=== PATIENT | female | born 1950 | race Caucasian/White ===

== ENCOUNTER 2016-11-07 10:55 | Inpatient (IN) | payer MEDICARE, MEDICAID ==
[~2016-11-07] VITALS: Ht 165.1 cm; Wt 76.2 kg
[2016-11-07] MEDS ORDERED: methylPREDNISolone INJ 125 MG/2 ML VIAL (J2930) As Ordered ONE (11:16)
[2016-11-07] MEDS ORDERED: FAMOTIDINE/NS 20 MG/50 ML BAG (S0028) As Ordered ONE (11:16)
[2016-11-07] MEDS ORDERED: diphenhydrAMINE INJ 50MG/ML VIAL (J1200) As Ordered ONE (11:16)
[2016-11-07 11:23] LABS: BASO % 0.5 % (0.0-1.0); EOS # 0.4 K/mm3 (0.0-0.50); EOS % 3.7 % (0.0-3.0); LARGE UNSTAINED CELL # 0.1 K/mm3 (0.0-0.4); LARGE UNSTAINED CELL % 1.2 % (0.0-4.0); LYMPH # 1.5 K/mm3 (1.5-4.5); LYMPH % 13.4 % (24.0-44.0); MEAN CORPUSCULAR HEMOGLOBIN 32.1 pg (27.0-33.0); MEAN CORPUSCULAR HGB CONC 33.7 g/dl (32.0-36.5); MEAN CORPUSCULAR VOLUME 95.2 fl (80.0-96.0); MONO # 0.4 K/mm3 (0.0-0.8); MONO % 3.5 % (0.0-5.0); NEUTROPHILS # 8.5 K/mm3 (1.8-7.7); NEUTROPHILS % 77.7 % (36.0-66.0); PLATELET COUNT, AUTOMATED 189 k/mm3 (150-450); RED CELL DISTRIBUTION WIDTH 11.9 % (11.5-14.5)
[2016-11-07 11:41] LABS: ANION GAP 10 MEQ/L (8-16); BLOOD UREA NITROGEN 12 MG/DL (7-18); CALCIUM LEVEL 9.5 MG/DL (8.8-10.2); CARBON DIOXIDE LEVEL 27 MEQ/L (21-32); CHLORIDE LEVEL 107 MEQ/L (98-107); CREATININE FOR GFR 0.77 MG/DL (0.55-1.02); GLOMERULAR FILTRATION RATE > 60.0 (>45); GLUCOSE, FASTING 119 MG/DL (80-110); POTASSIUM SERUM 3.8 MEQ/L (3.5-5.1); SODIUM LEVEL 144 MEQ/L (136-145)
[2016-11-07] MEDS ORDERED: LOSA50TA20 PO (13:26)
[2016-11-07] MEDS ORDERED: ZOCO80TA PO (13:26)
[2016-11-07] MEDS ORDERED: METF500T PO (13:26)
[2016-11-07] MEDS ORDERED: SYNT88TA2 PO (13:26)
[2016-11-07] MEDS ORDERED: ASPI1TAB PO (13:26)
[2016-11-07] MEDS ORDERED: PRED20TA PO (13:26)
[2016-11-07] MEDS ORDERED: HYDR25TAB PO (13:26)
[2016-11-07] MEDS ORDERED: raNITIdine SYRUP 150 MG/10 ML UDC PO SCH (13:30)
[2016-11-07] MEDS ORDERED: GLUCOSE 4 GM CHEW TABLET PO PRN (13:45)
[2016-11-07] MEDS ORDERED: DEXTROSE 50% 50 ML SYRINGE IV PRN (13:45)
[2016-11-07] MEDS ORDERED: ONDANSETRON 4MG/2ML VIAL (J2405) IV PRN (13:45)
[2016-11-07] MEDS ORDERED: GLUCAGON FOR INJ 1 MG VIAL (J1610) SC PRN (13:45)
[2016-11-07] MEDS ORDERED: HEPARIN SOD (PORCINE) 5000 UNITS/ML VIAL SC SCH (14:00)
[2016-11-07] MEDS ORDERED: NS 1,000 ML IV SCH (14:00)
[2016-11-07 14:03] LABS: INR 0.91
[2016-11-07] MEDS ORDERED: FAMO20TA PO (15:44)
[2016-11-07] MEDS ORDERED: DIPH50CA PO (15:44)
--- NOTE | 2016-11-07 16:03 | EDDOCDS ---
Nurse's Notes [facility] Name: Padmaja Conde Age: 66 yrs Sex: Female : 1950 Arrival Date: 11/07/2016 Time: 10:55 Bed 17 Private MD: Andre Mckoy Diagnosis: Anaphylactic reaction due to adverse effect of correct drug or medicament properly administered Presentation: 11/07 11:06 Presenting complaint: Patient states: sudden onset tongue swelling approx one hour ago. jjr Adult Sepsis Screening: The patient does not have new or worsening altered mentation. Patient's respiratory rate is less than 22. Systolic blood pressure is greater than 100. Patient has a qSOFA score of 0- Negative Sepsis Screen. Suicide/Homicide risk assessment- the patient denies having any suicidal and/or homicidal ideations and does not present with any other emotional, behavioral or mental health complaints. Status: Patient is not a early childhood services coordinator or dependent. Transition of care: patient was not received from another setting of care. 11:06 Acuity: KAREL Level 2 jjr 11:06 Method Of Arrival: Walkin/Carried/Asstd jjr Triage Assessment: 11:11 General: Appears in no apparent distress, Behavior is appropriate for age. EENT: tongue jjr swollen speech slightly slurred but managing secretions. Historical: - Allergies: "something in one of my blood pressure medications but the doctor fixed that"; - Home Meds: 1. metformin 500 mg Oral tab 1 tab 2 times per day (Last dose: 11/07/2016) 2. levothyroxine 88 mcg Oral tab 1 tab once daily (Last dose: 11/07/2016) 3. aspirin 81 mg Oral TbEC 1 tab once daily (Last dose: 11/07/2016) 4. hydrochlorothiazide 25 mg Oral tab 1 tab once daily (Last dose: 11/07/2016) 5. losartan 50 mg oral tab 1 tab once daily (Last dose: 11/07/2016) 6. simvastatin 80 mg Oral tab 80 mg nightly (Last dose: 11/06/2016) 7. prednisone 20 mg Oral tab once daily (Last dose: 11/07/2016) - PMHx: Diabetes - NIDDM: controlled; Hypercholesterolemia; Hypertension; Hypothyroidism; - PSHx: Tonsillectomy; - Social history: Smoking status: Patient uses tobacco products, current every day smoker. No barriers to communication noted, The patient speaks fluent Guinean. - : The pt / caregiver states he / she is not on anticoagulants. Home medication list is obtained from the patient, pill bottles. - Exposure Risk Screening:: None identified. Screenin:21 Screening information is obtained from the patient. Fall risk: No risks identified. hs1 Assistance ADL's: requires no assistance with activities of daily living. Abuse/DV Screen: The patient / caregiver reports he/she is: not in a situation that causes fear, pain or injury. Nutritional screening: No deficits noted. Advance Directives: Currently, there is no health care proxy. home support is adequate. Assessment: 11:55 General: Appears in no apparent distress, Behavior is cooperative. Pain: Denies pain. hs1 EENT: tongue swollen . EENT: Reports difficulty swallowing. Respiratory: Airway is patent Respiratory effort is even, unlabored, Respiratory pattern is regular, symmetrical. Derm: Skin is pink, warm & dry. normal. 12:46 General: Appears in no apparent distress, comfortable, Behavior is appropriate for age, hs1 cooperative. Pain: Denies pain. EENT: tongue swollen . Respiratory: Airway is patent Respiratory effort is even, unlabored, Respiratory pattern is regular, symmetrical. Derm: Skin is pink, warm & dry. normal. 13:16 Reassessment: Patient appears in no apparent distress at this time. patient aware of hs1 hospitalization at this time. MD Granados in to speak with patient and agrees with Nury OLIVERA and patient consents for FFP at this time. Patient continues to rest with friend present. Airway patent respirations even and unlabored. . 14:38 General: Appears in no apparent distress, comfortable, Behavior is appropriate for age, hs1 cooperative, tongue swelling decreased. Patient aware of admission asking to go have cigarette at this time and was told that she needed to sign out AMA if she wanted to do that. Patient aware and is choosing not to leave at this time.. Vital Signs: 11:00 BP 137 / 94; Pulse 121; Resp 20; Temp 98.4(O); Pulse Ox 95% on R/A; Weight 76.2 kg (M); elp Height 5 ft. 5 in. (165.10 cm) (M); 11:15 BP 128 / 81 (auto/); kc3 11:18 Pulse 92 MON; Pulse Ox 94% ; kc3 11:29 Pulse 86 MON; Pulse Ox 95% ; kc3 11:30 BP 143 / 81 (auto/); kc3 11:45 BP 131 / 74 (auto/); kc3 11:45 Pulse 84 MON; Pulse Ox 95% ; kc3 11:59 Pulse 82 MON; Pulse Ox 96% ; kc3 12:00 BP 129 / 72 (auto/); kc3 12:14 Pulse 86 MON; Pulse Ox 96% ; kc3 12:15 BP 119 / 65 (auto/); kc3 12:24 Pulse 86 MON; Pulse Ox 95% ; kc3 12:30 BP 132 / 76 (auto/); kc3 12:45 BP 124 / 69 (auto/); kc3 12:45 Pulse 86 MON; Pulse Ox 92% ; kc3 13:00 BP 134 / 74 (auto/); kc3 13:00 Pulse 86 MON; Pulse Ox 95% ; kc3 13:14 Pulse 90 MON; Pulse Ox 94% ; kc3 13:15 BP 121 / 56 (auto/); kc3 13:29 Pulse 86 MON; Pulse Ox 96% ; kc3 13:30 BP 124 / 65 (auto/); kc3 11:00 Body Mass Index 27.96 (76.20 kg, 165.10 cm) elp Vitals: 11:00 Log In Time: November 07, 2016 at 10:55. RN notified that patient meets Red Flag elp criteria. ED Course: 10:57 Patient visited by Antonette Prescott PCA. elp 10:57 Patient moved to Waiting elp 10:59 Andre Mckoy is Private Physician. elp 11:01 Patient visited by Antonette Prescott PCA. elp 11:03 Patient moved to 17 elp 11:07 Marti Arrington MD is Attending Physician. fg 11:07 Triage Initiated jjr 11:21 Inserted saline lock: 18 gauge in right antecubital area and blood collected. The hs1 patient tolerated the procedure well. 11:22 Patient visited by Vandana Walter RN. hs1 11:26 O2 via nasal cannula \\T\\ 2L/min. ead 11:54 Patient visited by Vandana Walter RN. hs1 11:57 The patient / caregiver is instructed regarding the plan of care and ED course. hs1 11:58 Patient visited by Marti Arrington MD. fg 12:35 Patient visited by Vandana Walter RN. hs1 12:42 Jaci Zavala is Hospitalizing Provider. fg 13:16 Vandana Walter, GUNNER is Primary Nurse. hs1 14:03 [facility] Payment Agreement was scanned into [employer] and attached to record. mm15 15:56 Discontinued IV lock intact, bleeding controlled, pressure dressing applied, No hs1 redness/swelling at site. No procedures done that require assistance. Administered Medications: 11:20 Drug: Solu-MEDROL 125 mg [Solu-Medrol 500 mg intravenous solution (125 mg)] Route: IVP; ead Site: right antecubital; 11:55 Follow up: Response: No significant change. hs1 11:22 Drug: diphenhydrAMINE 25 mg [diphenhydramine 50 mg/mL injection solution (0.5 mL)] ead Route: IVP; Site: right antecubital; 11:55 Follow up: Response: No significant change. hs1 11:25 Drug: Famotidine 20 mg [famotidine 10 mg/mL intravenous solution] Route: IVPB; Infused ead Over: 30 mins; Site: right antecubital; 11:54 Follow up: IV Status: Completed infusion; IV Intake: 50ml hs1 Intake: 11:54 IV: 50.00ml; Total: 50.00ml. hs1 Order Results: Lab Order: CBC with Diff; SPEC'M 11/07/16 11:16 Test: WHITE BLOOD COUNT; Value: 11.0; Range: 4.0-10.0; Abnormal: Above high normal; Units: K/mm3; Status: F Test: RED BLOOD COUNT; Value: 5.36; Range: 4.00-5.40; Units: M/mm3; Status: F Test: HEMOGLOBIN; Value: 17.2; Range: 12.0-16.0; Abnormal: Above high normal; Units: g/dl; Status: F Test: HEMATOCRIT; Value: 51.0; Range: 36.0-47.0; Abnormal: Above high normal; Units: %; Status: F Test: MEAN CORPUSCULAR VOLUME; Value: 95.2; Range: 80.0-96.0; Units: fl; Status: F Test: MEAN CORPUSCULAR HEMOGLOBIN; Value: 32.1; Range: 27.0-33.0; Units: pg; Status: F Test: MEAN CORPUSCULAR HGB CONC; Value: 33.7; Range: 32.0-36.5; Units: g/dl; Status: F Test: RED CELL DISTRIBUTION WIDTH; Value: 11.9; Range: 11.5-14.5; Units: %; Status: F Test: PLATELET COUNT, AUTOMATED; Value: 189; Range: 150-450; Units: k/mm3; Status: F Test: NEUTROPHILS %; Value: 77.7; Range: 36.0-66.0; Abnormal: Above high normal; Units: %; Status: F Test: LYMPH %; Value: 13.4; Range: 24.0-44.0; Abnormal: Below low normal; Units: %; Status: F Test: MONO %; Value: 3.5; Range: 0.0-5.0; Units: %; Status: F Test: EOS %; Value: 3.7; Range: 0.0-3.0; Abnormal: Above high normal; Units: %; Status: F Test: BASO %; Value: 0.5; Range: 0.0-1.0; Units: %; Status: F Test: LARGE UNSTAINED CELL %; Value: 1.2; Range: 0.0-4.0; Units: %; Status: F Test: NEUTROPHILS #; Value: 8.5; Range: 1.8-7.7; Abnormal: Above high normal; Units: K/mm3; Status: F Test: LYMPH #; Value: 1.5; Range: 1.5-4.5; Units: K/mm3; Status: F Test: MONO #; Value: 0.4; Range: 0.0-0.8; Units: K/mm3; Status: F Test: EOS #; Value: 0.4; Range: 0.0-0.50; Units: K/mm3; Status: F Test: BASO #; Value: 0.0; Range: 0.0-0.2; Units: K/mm3; Status: F Test: LARGE UNSTAINED CELL #; Value: 0.1; Range: 0.0-0.4; Units: K/mm3; Status: F Lab Order: Basic Metabolic Profile; SPEC'M 11/07/16 11:16 Test: GLUCOSE, FASTING; Value: 119; Range: 80-110; Abnormal: Above high normal; Units: MG/DL; Status: F Test: BLOOD UREA NITROGEN; Value: 12; Range: 7-18; Units: MG/DL; Status: F Test: CREATININE FOR GFR; Value: 0.77; Range: 0.55-1.02; Units: MG/DL; Status: F Test: GLOMERULAR FILTRATION RATE; Value: > 60.0; Range: >45; Status: F Test: SODIUM LEVEL; Value: 144; Range: 136-145; Units: MEQ/L; Status: F Test: POTASSIUM SERUM; Value: 3.8; Range: 3.5-5.1; Units: MEQ/L; Status: F Test: CHLORIDE LEVEL; Value: 107; Range: 98-107; Units: MEQ/L; Status: F Test: CARBON DIOXIDE LEVEL; Value: 27; Range: 21-32; Units: MEQ/L; Status: F Test: ANION GAP; Value: 10; Range: 8-16; Units: MEQ/L; Status: F Test: CALCIUM LEVEL; Value: 9.5; Range: 8.8-10.2; Units: MG/DL; Status: F Test Note: ; Units are mL/min/1.73 m2 Chronic Kidney Disease Staging per NKF: Stage I & II GFR >=60 Normal to Mildly Decreased Stage III GFR 30-59 Moderately Decreased Stage IV GFR 15-29 Severely Decreased Stage V GFR <15 Very Little GFR Left ESRD GFR <15 on HEALTH INFORMATICS ADVISOR Lab Order: ABO/RH TYPE; SPEC'11/07/16 12:40 Test: BLOOD TYPE; Value: A POS; Status: F Lab Order: PROTHROMBIN TIME PROFILE\\E\\INR; SPEC'11/07/16 13:48 Test: PROTHROMBIN TIME; Value: 12.4; Range: 12.3-14.5; Units: SECONDS; Status: F Test: INR; Value: 0.91; Status: F Test Note: ; THERAPUTIC HUMAN INR VALUES INDICATIONS NORMAL RANGES PROPHYLAXIS/TREATMENT OF: VENOUS THROMBOSIS 2.0-3.0 PULMONARY EMBOLISM 2.0-3.0 PREVENTION OF SYSTEMIC EMBOLISM FROM: TISSUE HEART VALVES 2.0-3.0 ACUTE MYOCARDIAL INFARCTION 2.0-3.0 VALVULAR HEART DISEASE 2.0-3.0 ATRIAL FIBRILLATION 2.0-3.0 MECHANICAL VALVES(HIGH RISK) 2.5-3.5 RECURRENT MYOCARDIAL INFARCTION 2.5-3.5 Lab Order: ERYTHROCYTE SEDIMENTATION RATE; SPEC'M 11/07/16 13:48 Test: ERYTHROCYTE SEDIMENTATION RATE; Value: 16; Range: 0-30; Units: mm/hr; Status: F Lab Order: C REACTIVE PROTEIN QUANTITATIV; SPEC'M 11/07/16 13:48 Test: C REACTIVE PROTEIN QUANTITATIV; Value: 0.49; Range: 0.00-0.30; Abnormal: Above high normal; Units: MG/DL; Status: F Lab Order: THYROID STIMULATING HORMONE; SPEC'M 11/07/16 13:48 Test: THYROID STIMULATING HORMONE; Value: 0.190; Range: 0.358-3.740; Abnormal: Below low normal; Units: uIU/ML; Status: F Outcome: 12:43 Decision to Hospitalize by Provider. fg 15:02 Admission hand-off: Other: SBAR sent at this time . hs1 15:54 Discharge Assessment: Patient awake, alert and oriented x 3. No cognitive and/or hs1 functional deficits noted. Patient verbalized understanding of disposition instructions. patient administered narcotics - no. The following High Risk Discharge criteria are identified: Yes, ama FORM SIGNED. The patient is leaving AMA: AMA form signed, Notification of AMA status is made to the charge nurse, the social science analyst, Other Darwin OLIVERA ordered discharge AMA - instructions and prescriptions given to patient. Patient aware of risks and benefits of leaving. Condition: stable. Discharge instructions given to patient, Instructed on discharge instructions, follow up and referral plans. medication usage, Demonstrated understanding of instructions, medications, Pt was receptive of discharge instructions/ teaching. Prescriptions given X 2. No special radiology studies were completed. Property sent home with patient. 16:02 Patient left the ED. hs1 Signatures: Amada Sky RN RN jjr Sherrill, Hannah, RN RN hs1 Mak Hair mm15 Antonette Prescott, LEONARD PLASTIC BLOCK BOILER RELINER Fernanda Quinn RN RN ead Gill, Frances, MD MD fg Martinez,Bryanna,GUNNER RN kc3 RAOUL
--- NOTE | 2016-11-07 16:03 | EDDOCDS ---
Physician Documentation [facility] Name: Padmaja Conde Age: 66 yrs Sex: Female : 1950 Arrival Date: 11/07/2016 Time: 10:55 Bed 17 Private MD: Andre Mckoy Disposition: 11/07/16 12:43 Hospitalization ordered by Jaci Zavala for Inpatient Admission. Preliminary diagnosis is Anaphylactic reaction due to adverse effect of correct drug or medicament properly administered. - Bed requested for PCU. - Status is Inpatient Admission. hs1 - Condition is Stable. - Problem is new. - Symptoms are unchanged. Historical: - Allergies: "something in one of my blood pressure medications but the doctor fixed that"; - Home Meds: 1. metformin 500 mg Oral tab 1 tab 2 times per day (Last dose: 11/07/2016) 2. levothyroxine 88 mcg Oral tab 1 tab once daily (Last dose: 11/07/2016) 3. aspirin 81 mg Oral TbEC 1 tab once daily (Last dose: 11/07/2016) 4. hydrochlorothiazide 25 mg Oral tab 1 tab once daily (Last dose: 11/07/2016) 5. losartan 50 mg oral tab 1 tab once daily (Last dose: 11/07/2016) 6. simvastatin 80 mg Oral tab 80 mg nightly (Last dose: 11/06/2016) 7. prednisone 20 mg Oral tab once daily (Last dose: 11/07/2016) - PMHx: Diabetes - NIDDM: controlled; Hypercholesterolemia; Hypertension; Hypothyroidism; - PSHx: Tonsillectomy; - Social history: Smoking status: Patient uses tobacco products, current every day smoker. No barriers to communication noted, The patient speaks fluent German. - : The pt / caregiver states he / she is not on anticoagulants. Home medication list is obtained from the patient, pill bottles. - Exposure Risk Screening:: None identified. Vital Signs: 11/07 11:00 BP 137 / 94; Pulse 121; Resp 20; Temp 98.4(O); Pulse Ox 95% on R/A; Weight 76.2 kg / elp 167.99 lbs (M); Height 5 ft. 5 in. (165.10 cm) (M); 11:15 BP 128 / 81 (auto/); kc3 11:18 Pulse 92 MON; Pulse Ox 94% ; kc3 11:29 Pulse 86 MON; Pulse Ox 95% ; kc3 11:30 BP 143 / 81 (auto/); kc3 11:45 BP 131 / 74 (auto/); kc3 11:45 Pulse 84 MON; Pulse Ox 95% ; kc3 11:59 Pulse 82 MON; Pulse Ox 96% ; kc3 12:00 BP 129 / 72 (auto/); kc3 12:14 Pulse 86 MON; Pulse Ox 96% ; kc3 12:15 BP 119 / 65 (auto/); kc3 12:24 Pulse 86 MON; Pulse Ox 95% ; kc3 12:30 BP 132 / 76 (auto/); kc3 12:45 BP 124 / 69 (auto/); kc3 12:45 Pulse 86 MON; Pulse Ox 92% ; kc3 13:00 BP 134 / 74 (auto/); kc3 13:00 Pulse 86 MON; Pulse Ox 95% ; kc3 13:14 Pulse 90 MON; Pulse Ox 94% ; kc3 13:15 BP 121 / 56 (auto/); kc3 13:29 Pulse 86 MON; Pulse Ox 96% ; kc3 13:30 BP 124 / 65 (auto/); kc3 11:00 Body Mass Index 27.96 (76.20 kg, 165.10 cm) elp MDM: 11:08 IV Saline Lock ordered. fg 11:08 Solu-MEDROL 125 mg IVP once ordered. fg 11:08 Famotidine 20 mg IVPB once over 30 mins; dilute in 50mL of NS ordered. fg 11:08 diphenhydrAMINE 25 mg IVP once ordered. fg 11:09 CBC with Diff Ordered. EDMS 11:09 Basic Metabolic Profile Ordered. EDMS 12:41 BED REQUEST+ADM ordered. EDMS 13:19 ABO/RH TYPE Ordered. EDMS 13:32 PROTHROMBIN TIME PROFILE\\E\\INR Ordered. EDMS 13:32 ERYTHROCYTE SEDIMENTATION RATE Ordered. EDMS 13:32 C REACTIVE PROTEIN QUANTITATIV Ordered. EDMS 13:32 THYROID STIMULATING HORMONE Ordered. EDMS 13:33 Admission / Observation Status ordered. EDMS 13:33 NPO DIET ordered. EDMS 14:01 Financial registration complete. mm15 14:03 [facility] Payment Agreement was scanned into [employer]_ and attached to record. mm15 Administered Medications: 11:20 Drug: Solu-MEDROL 125 mg [Solu-Medrol 500 mg intravenous solution (125 mg)] Route: IVP; ead Site: right antecubital; 11:55 Follow up: Response: No significant change. hs1 11:22 Drug: diphenhydrAMINE 25 mg [diphenhydramine 50 mg/mL injection solution (0.5 mL)] ead Route: IVP; Site: right antecubital; 11:55 Follow up: Response: No significant change. hs1 11:25 Drug: Famotidine 20 mg [famotidine 10 mg/mL intravenous solution] Route: IVPB; Infused ead Over: 30 mins; Site: right antecubital; 11:54 Follow up: IV Status: Completed infusion; IV Intake: 50ml hs1 Signatures: Dispatcher [employer] EDAmada Jimenez RN RN jjr Sherrill, Hannah, RN RN hs1 Mak Hair mm15 Westley Clayton RN RN [facility] Marti Arrington MD MD Fernanda Hernandez RN ead The chart was reviewed and I authenticate all verbal orders and agree with the evaluation and treatment provided.Corrections: (The following items were deleted from the chart) 13:53 13:41 THYROID STIMULATING HORMONE ordered. EDMS EDMS 15:52 12:41 FROZEN PLASMA 24+BBK ordered. EDMS EDMS Attachments: 14:03 [facility] Payment Agreement mm15 MTDD
[2016-11-07] MEDS ORDERED: HumaLOG INSULIN (NovoLOG) PER UNIT SC SCH ×2 (17:30→21:00)
[2016-11-07] MEDS ORDERED: methylPREDNISolone INJ 125 MG/2 ML VIAL (J2930) IV SCH (20:00)
[2016-11-07] MEDS ORDERED: FAMOTIDINE 20 MG TAB PO SCH (21:00)
[2016-11-07] MEDS ORDERED: SIMVASTATIN 40 MG TAB PO SCH (21:00)
--- NOTE | 2016-11-07 21:40 | HPE ---
DATE OF ADMISSION: 11/07/2016 PRIMARY CARE PROVIDER: Dr. Andre Mckoy CHIEF COMPLAINT: Tongue and lip swelling. HISTORY OF PRESENT ILLNESS: The patient is a 66-year-old female who informs me that her upper lip began swelling on Tuesday. She was seen by a physician's trust manager assistant in her physician's clinic who had started her on prednisone. On further questioning and review of the chart, the patient was actually seen and evaluated in the emergency room in 2013 and at that she had edema and swelling to the same degree. She remembers the incident well. As per records, she was seen by Dr. Moore in the emergency room, who had stopped her Lisinopril. She was seen by Dr. Mckoy then as well and the patient declined admission. She did improve within several hours and was discharged. Following that, she was switched to irbesartan. She returned to the emergency room again in 2013 and was seen [address] Dr[address] Muller and was given Zantac, prednisone Dose Pack, and was discharged. She was once again seen and evaluated in the emergency room in March of last year with angioedema once again, these last two episodes being more mild and minor than today's or the 2013 visit. At that time, she was seen by Dr. Mcmahon. Her symptoms did improve with steroids and antihistamine, and she was discharged home. Today, the patient states that since Tuesday it has progressively worsened and significantly worsened more so this morning. Since 2013, the patient has been on losartan. She denies any change in her diet. No recent food or nut exposures. No other allergies that she is aware of. No family history of angioedema or facial swelling. She denies fevers, chills, chest pain, shortness of breath at the present time. She denies anxiety. PAST MEDICAL HISTORY: 1. Dbd-vbaexbt-xiurdjvpp diabetes. 2. Dyslipidemia. 3. Hypertension. 4. Hypothyroidism. 5. The patient reports a history of a stroke in the distant past. ALLERGIES: No known allergies. HOME MEDICATIONS: - losartan 50 mg daily - metformin 500 mg twice a day - prednisone 20 mg daily started on Tuesday - aspirin 81 mg daily - hydrochlorothiazide 25 mg daily - levothyroxine 88 mcg daily - simvastatin 80 mg at night PAST SURGICAL HISTORY: Tonsillectomy. SOCIAL HISTORY: The patient is a current smoker. Denies alcohol or illicit drug use. PHYSICAL EXAMINATION: VITAL SIGNS: Blood pressure 137/94, pulse 121, respiratory rate 20, temperature 98.4, oxygen saturation 95% on room air. GENERAL: She is a pleasant, elderly, female. She is accompanied by her cousin. The patient does not appear to be in any acute distress whatsoever. HEENT: She does have visible angioedema of the tongue, upper and lower lips. She is able to protrude her tongue. I am able to visualize her oral cavity posteriorly, including her uvula. She has mildly dry mucous membranes. No elevation in central venous pressure. CARDIOVASCULAR EXAMINATION: S1, S2. She is mildly tachycardic on my examination. RESPIRATORY EXAM: Clear. There is no stridor. ABDOMINAL EXAM: Benign. EXTREMITIES: No clubbing, cyanosis or edema. LABORATORY STUDIES: WBC 11.0, hemoglobin 17.2, hematocrit 51, platelet count 189. Chemistry panel: Sodium 144, potassium 3.8, chloride 107, bicarbonate 27, BUN 12, creatinine 0.7. No imaging. ASSESSMENT AND PLAN: This is a 66-year-old female with angioedema. 1. Angioedema. The patient had an episode in 2013 felt to be secondary to Lisinopril. She was switched to losartan and this is her third episode since that switch. At this time, my suspicion is that she is also having angioedema as an adverse reaction to losartan, although it is rare for patient's to have this adverse effect to both medications. This patient appears to be experiencing it. I will discontinue losartan and suggest that she does not take this medication in the future. I will document both Lisinopril and losartan as allergies in her medical record. Should she have any further episodes in the future, she may benefit from testing for C1 esterase deficiency. For the time being, the patient, in the emergency room, has received 2 units fresh frozen plasma, Benadryl, Solu-Medrol 125, and Pepcid 20 mg. I will admit her and provide her with ranitidine, Benadryl, and complete the fresh frozen plasma transfusion, which will likely benefit her. Solu- Medrol is usually not beneficial on ARB/WILLIAM inhibitor angioedema; however, given the possibility that this is C1 esterase deficiency or reaction to other medication, and she has improved on this in the past, I will continue her on Solu-Medrol. The patient is admitted to the progressive care unit (PCU) where she will be on continuous pulse oximetry monitoring. In the past, her episodes have resolved fairly quickly. This has been relative slow onset since Tuesday. 2. Diabetes. We will hold the patient's metformin and place her on sliding scale insulin with fingersticks. 3. History of a distant CVA. The patient is on an aspirin and a statin. 4. Hypothyroidism. The patient is on thyroid replacement therapy and we will check a TSH. 5. Tobacco use. The patient continues in the face of a distant CVA. She is at risk for further CVA while doing this. Cessation counseling is offered. 6. Hypertension. We are holding the patient's losartan. She will continue with hydrochlorothiazide with parameters. Could consider calcium channel delvin if she does need additional agent. 7. Deep vein thrombosis (DVT) prophylaxis. The patient will be on heparin. 8. Polycythemia. The patient's hemoglobin and hematocrit are mildly elevated. This may be related to tobacco use or she may be mildly dehydrated. I will provide her with some gentle IV fluids and recheck tomorrow. She may require further followup testing with her primary care provider upon discharge. DISPOSITION: The patient is admitted to the progressive care unit (PCU) for continued pulse oximetry and frequent vital signs and neuro checks to Dr. Smart' s service, who will continue following the patient tomorrow at 7:00 a.m. RAOUL
--- NOTE | 2016-11-07 21:43 | DS ---
DATE OF ADMISSION: 11/07/2016 DATE OF LEAVING AGAINST MEDICAL ADVICE: 11/07/2015 Please see history and physical dictated several hours earlier on 11/07/2016. The patient remained in the emergency room where she had improvement in her symptoms to the point that she felt that she was well enough to go home. It was explained to her that she would need to remain in the hospital for further observation and any relapsing of symptoms. Given that it is related to her airway compromise, it would lead to potential . We were providing her with intravenous medications. After the transfusion, she declined all interventions and chose to leave the hospital against medical advice. Greater than 20 minutes was spent at bedside speaking with the patient and her cousin, stressing the need for her to remain in the hospital; however, the patient declines this and is unreasonable to great efforts. I have advised her to stop taking losartan and continue taking prednisone, Pepcid and Benadryl. Prescriptions are sent to her pharmacy. I had a lengthy discussion with the patient and her cousin that if she should get worse, she should return to the hospital immediately. The patient would like to leave against medical advice. ADDENDUM: 11/07/2016, antony DISPOSITION: The patient is leaving the hospital against medical advice to the care of her cousin. She is leaving against medical advice. She has been advised to return to the emergency room if her symptoms worsen. She is to stop Losartan. She is to followup with her primary care provider as soon as possible. Her activity and diet are guarded given that there is potential for airway compromise and she has oral cavity swelling of her tongue, upper and lower lips. MEDICATIONS: At the time of discharge: - Benadryl 50 mg every 8 hours, quantity 6 sent to her pharmacy - Pepcid 20 mg twice a day, quantity 6 sent to her pharmacy - aspirin 81 mg - hydrochlorothiazide 25 mg daily - Synthroid 88 mcg daily - metformin 500 mg twice a day - prednisone 20 mg taper - simvastatin 80 mg at night She is to stop taking losartan. MTDD
[2016-11-07] MEDS ORDERED: diphenhydrAMINE 50 MG CAP PO SCH (22:00)
[2016-11-08] MEDS ORDERED: LEVOTHYROXINE 0.088 MG TAB (88 MCG) PO SCH (06:00)
[2016-11-08] MEDS ORDERED: ASPIRIN 81 MG ENTERIC TAB PO SCH (09:00)
[2016-11-08] MEDS ORDERED: hydroCHLOROthiazide 25 MG TAB PO SCH (09:00)
--- NOTE | 2016-11-09 17:04 | EDDOCDS ---
Physician Documentation [facility] Name: Padmaja Conde Age: 66 yrs Sex: Female : 1950 Arrival Date: 11/07/2016 Time: 10:55 Bed 17 Private MD: Andre Mckoy Disposition: 11/07/16 12:43 Hospitalization ordered by Jaci Zavala for Inpatient Admission. Preliminary diagnosis is Anaphylactic reaction due to adverse effect of correct drug or medicament properly administered. - Bed requested for PCU. - Status is Inpatient Admission. hs1 - Condition is Stable. - Problem is new. - Symptoms are unchanged. Historical: - Allergies: "something in one of my blood pressure medications but the doctor fixed that"; - Home Meds: 1. metformin 500 mg Oral tab 1 tab 2 times per day (Last dose: 11/07/2016) 2. levothyroxine 88 mcg Oral tab 1 tab once daily (Last dose: 11/07/2016) 3. aspirin 81 mg Oral TbEC 1 tab once daily (Last dose: 11/07/2016) 4. hydrochlorothiazide 25 mg Oral tab 1 tab once daily (Last dose: 11/07/2016) 5. losartan 50 mg oral tab 1 tab once daily (Last dose: 11/07/2016) 6. simvastatin 80 mg Oral tab 80 mg nightly (Last dose: 11/06/2016) 7. prednisone 20 mg Oral tab once daily (Last dose: 11/07/2016) - PMHx: Diabetes - NIDDM: controlled; Hypercholesterolemia; Hypertension; Hypothyroidism; - PSHx: Tonsillectomy; - Social history: Smoking status: Patient uses tobacco products, current every day smoker. No barriers to communication noted, The patient speaks fluent Armenian. - : The pt / caregiver states he / she is not on anticoagulants. Home medication list is obtained from the patient, pill bottles. - Exposure Risk Screening:: None identified. Vital Signs: 11/07 11:00 BP 137 / 94; Pulse 121; Resp 20; Temp 98.4(O); Pulse Ox 95% on R/A; Weight 76.2 kg / elp 167.99 lbs (M); Height 5 ft. 5 in. (165.10 cm) (M); 11:15 BP 128 / 81 (auto/); kc3 11:18 Pulse 92 MON; Pulse Ox 94% ; kc3 11:29 Pulse 86 MON; Pulse Ox 95% ; kc3 11:30 BP 143 / 81 (auto/); kc3 11:45 BP 131 / 74 (auto/); kc3 11:45 Pulse 84 MON; Pulse Ox 95% ; kc3 11:59 Pulse 82 MON; Pulse Ox 96% ; kc3 12:00 BP 129 / 72 (auto/); kc3 12:14 Pulse 86 MON; Pulse Ox 96% ; kc3 12:15 BP 119 / 65 (auto/); kc3 12:24 Pulse 86 MON; Pulse Ox 95% ; kc3 12:30 BP 132 / 76 (auto/); kc3 12:45 BP 124 / 69 (auto/); kc3 12:45 Pulse 86 MON; Pulse Ox 92% ; kc3 13:00 BP 134 / 74 (auto/); kc3 13:00 Pulse 86 MON; Pulse Ox 95% ; kc3 13:14 Pulse 90 MON; Pulse Ox 94% ; kc3 13:15 BP 121 / 56 (auto/); kc3 13:29 Pulse 86 MON; Pulse Ox 96% ; kc3 13:30 BP 124 / 65 (auto/); kc3 15:14 Pulse 112 MON; Pulse Ox 95% ; hs1 15:15 BP 140 / 87 (auto/); hs1 11:00 Body Mass Index 27.96 (76.20 kg, 165.10 cm) elp MDM: 11:08 IV Saline Lock ordered. fg 11:08 Solu-MEDROL 125 mg IVP once ordered. fg 11:08 Famotidine 20 mg IVPB once over 30 mins; dilute in 50mL of NS ordered. fg 11:08 diphenhydrAMINE 25 mg IVP once ordered. fg 11:09 CBC with Diff Ordered. EDMS 11:09 Basic Metabolic Profile Ordered. EDMS 12:41 BED REQUEST+ADM ordered. EDMS 13:19 ABO/RH TYPE Ordered. EDMS 13:32 PROTHROMBIN TIME PROFILE\\E\\INR Ordered. EDMS 13:32 ERYTHROCYTE SEDIMENTATION RATE Ordered. EDMS 13:32 C REACTIVE PROTEIN QUANTITATIV Ordered. EDMS 13:32 THYROID STIMULATING HORMONE Ordered. EDMS 13:33 Admission / Observation Status ordered. EDMS 13:33 NPO DIET ordered. EDMS 14:01 Financial registration complete. mm15 14:03 [facility] Payment Agreement was scanned into [employer] and attached to record. mm15 16:32 Refusal of Services was scanned into [employer] and attached to record. deg 19:31 BASIC METABOLIC PROFILE Ordered. EDMS 19:31 COMPLETE BLOOD COUNT Ordered. EDMS 21:57 T-Sheet-- Draft Copy was scanned into [employer] and attached to record. klr 11/08 12:24 Refusal of Services was scanned into [employer] and attached to record. gb 12:24 Consents was scanned into [employer] and attached to record. gb Administered Medications: 11/07 11:20 Drug: Solu-MEDROL 125 mg [Solu-Medrol 500 mg intravenous solution (125 mg)] Route: IVP; ead Site: right antecubital; 11:55 Follow up: Response: No significant change. hs1 11:22 Drug: diphenhydrAMINE 25 mg [diphenhydramine 50 mg/mL injection solution (0.5 mL)] ead Route: IVP; Site: right antecubital; 11:55 Follow up: Response: No significant change. hs1 11:25 Drug: Famotidine 20 mg [famotidine 10 mg/mL intravenous solution] Route: IVPB; Infused ead Over: 30 mins; Site: right antecubital; 11:54 Follow up: IV Status: Completed infusion; IV Intake: 50ml hs1 Signatures: Dispatcher [employer] EDSara Parmar, Adobe Developer Unit deg Samira Wong, Reg Reg gb Amada Sky RN RN jjr Sherrill, Hannah, RN RN hs1 Mak Hair mm15 Westley Clayton RN RN mts Gill, Frances, MD MD fg Redder, Kathie klr Dunaway, Emily RN ead The chart was reviewed and I authenticate all verbal orders and agree with the evaluation and treatment provided.Corrections: (The following items were deleted from the chart) 13:53 13:41 THYROID STIMULATING HORMONE ordered. EDMS EDMS 15:52 12:41 FROZEN PLASMA 24+BBK ordered. EDMS EDMS Attachments: 14:03 [facility] Payment Agreement mm15 21:57 T-Sheet-- Draft Copy klr Chart Complete MTDD
--- NOTE | 2016-11-09 17:04 | EDDOCDS ---
Nurse's Notes [facility] Name: Padmaja Conde Age: 66 yrs Sex: Female : 1950 Arrival Date: 11/07/2016 Time: 10:55 Bed 17 Private MD: Andre Mckoy Diagnosis: Anaphylactic reaction due to adverse effect of correct drug or medicament properly administered Presentation: 11/07 11:06 Presenting complaint: Patient states: sudden onset tongue swelling approx one hour ago. jjr Adult Sepsis Screening: The patient does not have new or worsening altered mentation. Patient's respiratory rate is less than 22. Systolic blood pressure is greater than 100. Patient has a qSOFA score of 0- Negative Sepsis Screen. Suicide/Homicide risk assessment- the patient denies having any suicidal and/or homicidal ideations and does not present with any other emotional, behavioral or mental health complaints. Status: Patient is not a volunteer services director or dependent. Transition of care: patient was not received from another setting of care. 11:06 Acuity: KAREL Level 2 jjr 11:06 Method Of Arrival: Walkin/Carried/Asstd jjr Triage Assessment: 11:11 General: Appears in no apparent distress, Behavior is appropriate for age. EENT: tongue jjr swollen speech slightly slurred but managing secretions. Historical: - Allergies: "something in one of my blood pressure medications but the doctor fixed that"; - Home Meds: 1. metformin 500 mg Oral tab 1 tab 2 times per day (Last dose: 11/07/2016) 2. levothyroxine 88 mcg Oral tab 1 tab once daily (Last dose: 11/07/2016) 3. aspirin 81 mg Oral TbEC 1 tab once daily (Last dose: 11/07/2016) 4. hydrochlorothiazide 25 mg Oral tab 1 tab once daily (Last dose: 11/07/2016) 5. losartan 50 mg oral tab 1 tab once daily (Last dose: 11/07/2016) 6. simvastatin 80 mg Oral tab 80 mg nightly (Last dose: 11/06/2016) 7. prednisone 20 mg Oral tab once daily (Last dose: 11/07/2016) - PMHx: Diabetes - NIDDM: controlled; Hypercholesterolemia; Hypertension; Hypothyroidism; - PSHx: Tonsillectomy; - Social history: Smoking status: Patient uses tobacco products, current every day smoker. No barriers to communication noted, The patient speaks fluent Norwegian. - : The pt / caregiver states he / she is not on anticoagulants. Home medication list is obtained from the patient, pill bottles. - Exposure Risk Screening:: None identified. Screenin:21 Screening information is obtained from the patient. Fall risk: No risks identified. hs1 Assistance ADL's: requires no assistance with activities of daily living. Abuse/DV Screen: The patient / caregiver reports he/she is: not in a situation that causes fear, pain or injury. Nutritional screening: No deficits noted. Advance Directives: Currently, there is no health care proxy. home support is adequate. Assessment: 11:55 General: Appears in no apparent distress, Behavior is cooperative. Pain: Denies pain. hs1 EENT: tongue swollen . EENT: Reports difficulty swallowing. Respiratory: Airway is patent Respiratory effort is even, unlabored, Respiratory pattern is regular, symmetrical. Derm: Skin is pink, warm & dry. normal. 12:46 General: Appears in no apparent distress, comfortable, Behavior is appropriate for age, hs1 cooperative. Pain: Denies pain. EENT: tongue swollen . Respiratory: Airway is patent Respiratory effort is even, unlabored, Respiratory pattern is regular, symmetrical. Derm: Skin is pink, warm & dry. normal. 13:16 Reassessment: Patient appears in no apparent distress at this time. patient aware of hs1 hospitalization at this time. MD Granados in to speak with patient and agrees with Nury OLIVERA and patient consents for FFP at this time. Patient continues to rest with friend present. Airway patent respirations even and unlabored. . 14:38 General: Appears in no apparent distress, comfortable, Behavior is appropriate for age, hs1 cooperative, tongue swelling decreased. Patient aware of admission asking to go have cigarette at this time and was told that she needed to sign out AMA if she wanted to do that. Patient aware and is choosing not to leave at this time.. Vital Signs: 11:00 BP 137 / 94; Pulse 121; Resp 20; Temp 98.4(O); Pulse Ox 95% on R/A; Weight 76.2 kg (M); elp Height 5 ft. 5 in. (165.10 cm) (M); 11:15 BP 128 / 81 (auto/); kc3 11:18 Pulse 92 MON; Pulse Ox 94% ; kc3 11:29 Pulse 86 MON; Pulse Ox 95% ; kc3 11:30 BP 143 / 81 (auto/); kc3 11:45 BP 131 / 74 (auto/); kc3 11:45 Pulse 84 MON; Pulse Ox 95% ; kc3 11:59 Pulse 82 MON; Pulse Ox 96% ; kc3 12:00 BP 129 / 72 (auto/); kc3 12:14 Pulse 86 MON; Pulse Ox 96% ; kc3 12:15 BP 119 / 65 (auto/); kc3 12:24 Pulse 86 MON; Pulse Ox 95% ; kc3 12:30 BP 132 / 76 (auto/); kc3 12:45 BP 124 / 69 (auto/); kc3 12:45 Pulse 86 MON; Pulse Ox 92% ; kc3 13:00 BP 134 / 74 (auto/); kc3 13:00 Pulse 86 MON; Pulse Ox 95% ; kc3 13:14 Pulse 90 MON; Pulse Ox 94% ; kc3 13:15 BP 121 / 56 (auto/); kc3 13:29 Pulse 86 MON; Pulse Ox 96% ; kc3 13:30 BP 124 / 65 (auto/); kc3 15:14 Pulse 112 MON; Pulse Ox 95% ; hs1 15:15 BP 140 / 87 (auto/); hs1 11:00 Body Mass Index 27.96 (76.20 kg, 165.10 cm) elp Vitals: 11:00 Log In Time: November 07, 2016 at 10:55. RN notified that patient meets Red Flag elp criteria. ED Course: 10:57 Patient visited by Antonette Prescott PCA. elp 10:57 Patient moved to Waiting elp 10:59 Andre Mckoy is Private Physician. elp 11:01 Patient visited by Antonette Prescott PCA. elp 11:03 Patient moved to 17 elp 11:07 Marti Arrington MD is Attending Physician. fg 11:07 Triage Initiated jjr 11:21 Inserted saline lock: 18 gauge in right antecubital area and blood collected. The hs1 patient tolerated the procedure well. 11:22 Patient visited by Vandana Walter RN. hs1 11:26 O2 via nasal cannula \\T\\ 2L/min. ead 11:54 Patient visited by Vandana Walter RN. hs1 11:57 The patient / caregiver is instructed regarding the plan of care and ED course. hs1 11:58 Patient visited by Marti Arrington MD. fg 12:35 Patient visited by Vandana Walter RN. hs1 12:42 Jaci Zavala is Hospitalizing Provider. fg 13:16 Vandana Walter RN is Primary Nurse. hs1 14:03 [facility] Payment Agreement was scanned into [employer] and attached to record. mm15 15:56 Discontinued IV lock intact, bleeding controlled, pressure dressing applied, No hs1 redness/swelling at site. No procedures done that require assistance. 16:32 Refusal of Services was scanned into [employer] and attached to record. deg 21:57 T-Sheet-- Draft Copy was scanned into [employer] and attached to record. klr 11/08 12:24 Refusal of Services was scanned into [employer] and attached to record. gb 12:24 Consents was scanned into [employer] and attached to record. gb Administered Medications: 11/07 11:20 Drug: Solu-MEDROL 125 mg [Solu-Medrol 500 mg intravenous solution (125 mg)] Route: IVP; ead Site: right antecubital; 11:55 Follow up: Response: No significant change. hs1 11:22 Drug: diphenhydrAMINE 25 mg [diphenhydramine 50 mg/mL injection solution (0.5 mL)] ead Route: IVP; Site: right antecubital; 11:55 Follow up: Response: No significant change. hs1 11:25 Drug: Famotidine 20 mg [famotidine 10 mg/mL intravenous solution] Route: IVPB; Infused ead Over: 30 mins; Site: right antecubital; 11:54 Follow up: IV Status: Completed infusion; IV Intake: 50ml hs1 Attachments: 16:32 Refusal of Services deg 11/08 12:24 Refusal of Services gb 12:24 Consents gb Intake: 11/07 11:54 IV: 50.00ml; Total: 50.00ml. hs1 Order Results: Lab Order: CBC with Diff; SPEC'M 11/07/16 11:16 Test: WHITE BLOOD COUNT; Value: 11.0; Range: 4.0-10.0; Abnormal: Above high normal; Units: K/mm3; Status: F Test: RED BLOOD COUNT; Value: 5.36; Range: 4.00-5.40; Units: M/mm3; Status: F Test: HEMOGLOBIN; Value: 17.2; Range: 12.0-16.0; Abnormal: Above high normal; Units: g/dl; Status: F Test: HEMATOCRIT; Value: 51.0; Range: 36.0-47.0; Abnormal: Above high normal; Units: %; Status: F Test: MEAN CORPUSCULAR VOLUME; Value: 95.2; Range: 80.0-96.0; Units: fl; Status: F Test: MEAN CORPUSCULAR HEMOGLOBIN; Value: 32.1; Range: 27.0-33.0; Units: pg; Status: F Test: MEAN CORPUSCULAR HGB CONC; Value: 33.7; Range: 32.0-36.5; Units: g/dl; Status: F Test: RED CELL DISTRIBUTION WIDTH; Value: 11.9; Range: 11.5-14.5; Units: %; Status: F Test: PLATELET COUNT, AUTOMATED; Value: 189; Range: 150-450; Units: k/mm3; Status: F Test: NEUTROPHILS %; Value: 77.7; Range: 36.0-66.0; Abnormal: Above high normal; Units: %; Status: F Test: LYMPH %; Value: 13.4; Range: 24.0-44.0; Abnormal: Below low normal; Units: %; Status: F Test: MONO %; Value: 3.5; Range: 0.0-5.0; Units: %; Status: F Test: EOS %; Value: 3.7; Range: 0.0-3.0; Abnormal: Above high normal; Units: %; Status: F Test: BASO %; Value: 0.5; Range: 0.0-1.0; Units: %; Status: F Test: LARGE UNSTAINED CELL %; Value: 1.2; Range: 0.0-4.0; Units: %; Status: F Test: NEUTROPHILS #; Value: 8.5; Range: 1.8-7.7; Abnormal: Above high normal; Units: K/mm3; Status: F Test: LYMPH #; Value: 1.5; Range: 1.5-4.5; Units: K/mm3; Status: F Test: MONO #; Value: 0.4; Range: 0.0-0.8; Units: K/mm3; Status: F Test: EOS #; Value: 0.4; Range: 0.0-0.50; Units: K/mm3; Status: F Test: BASO #; Value: 0.0; Range: 0.0-0.2; Units: K/mm3; Status: F Test: LARGE UNSTAINED CELL #; Value: 0.1; Range: 0.0-0.4; Units: K/mm3; Status: F Lab Order: Basic Metabolic Profile; [facility]' 11/07/16 11:16 Test: GLUCOSE, FASTING; Value: 119; Range: 80-110; Abnormal: Above high normal; Units: MG/DL; Status: F Test: BLOOD UREA NITROGEN; Value: 12; Range: 7-18; Units: MG/DL; Status: F Test: CREATININE FOR GFR; Value: 0.77; Range: 0.55-1.02; Units: MG/DL; Status: F Test: GLOMERULAR FILTRATION RATE; Value: > 60.0; Range: >45; Status: F Test: SODIUM LEVEL; Value: 144; Range: 136-145; Units: MEQ/L; Status: F Test: POTASSIUM SERUM; Value: 3.8; Range: 3.5-5.1; Units: MEQ/L; Status: F Test: CHLORIDE LEVEL; Value: 107; Range: 98-107; Units: MEQ/L; Status: F Test: CARBON DIOXIDE LEVEL; Value: 27; Range: 21-32; Units: MEQ/L; Status: F Test: ANION GAP; Value: 10; Range: 8-16; Units: MEQ/L; Status: F Test: CALCIUM LEVEL; Value: 9.5; Range: 8.8-10.2; Units: MG/DL; Status: F Test Note: ; Units are mL/min/1.73 m2 Chronic Kidney Disease Staging per NKF: Stage I & II GFR >=60 Normal to Mildly Decreased Stage III GFR 30-59 Moderately Decreased Stage IV GFR 15-29 Severely Decreased Stage V GFR <15 Very Little GFR Left ESRD GFR <15 on LUMBER STRAIGHTENER Lab Order: ABO/RH TYPE; [facility] 11/07/16 12:40 Test: BLOOD TYPE; Value: A POS; Status: F Lab Order: PROTHROMBIN TIME PROFILE\\E\\INR; [facility] 11/07/16 13:48 Test: PROTHROMBIN TIME; Value: 12.4; Range: 12.3-14.5; Units: SECONDS; Status: F Test: INR; Value: 0.91; Status: F Test Note: ; THERAPUTIC HUMAN INR VALUES INDICATIONS NORMAL RANGES PROPHYLAXIS/TREATMENT OF: VENOUS THROMBOSIS 2.0-3.0 PULMONARY EMBOLISM 2.0-3.0 PREVENTION OF SYSTEMIC EMBOLISM FROM: TISSUE HEART VALVES 2.0-3.0 ACUTE MYOCARDIAL INFARCTION 2.0-3.0 VALVULAR HEART DISEASE 2.0-3.0 ATRIAL FIBRILLATION 2.0-3.0 MECHANICAL VALVES(HIGH RISK) 2.5-3.5 RECURRENT MYOCARDIAL INFARCTION 2.5-3.5 Lab Order: ERYTHROCYTE SEDIMENTATION RATE; [facility] 11/07/16 13:48 Test: ERYTHROCYTE SEDIMENTATION RATE; Value: 16; Range: 0-30; Units: mm/hr; Status: F Lab Order: C REACTIVE PROTEIN QUANTITATIV; [facility] 11/07/16 13:48 Test: C REACTIVE PROTEIN QUANTITATIV; Value: 0.49; Range: 0.00-0.30; Abnormal: Above high normal; Units: MG/DL; Status: F Lab Order: THYROID STIMULATING HORMONE; [facility] 11/07/16 13:48 Test: THYROID STIMULATING HORMONE; Value: 0.190; Range: 0.358-3.740; Abnormal: Below low normal; Units: uIU/ML; Status: F Outcome: 12:43 Decision to Hospitalize by Provider. fg 15:02 Admission hand-off: Other: SBAR sent at this time . hs1 15:54 Discharge Assessment: Patient awake, alert and oriented x 3. No cognitive and/or hs1 functional deficits noted. Patient verbalized understanding of disposition instructions. patient administered narcotics - no. The following High Risk Discharge criteria are identified: Yes, ama FORM SIGNED. The patient is leaving AMA: AMA form signed, Notification of AMA status is made to the charge nurse, the social media marketing manager, Other Darwin OLIVERA ordered discharge AMA - instructions and prescriptions given to patient. Patient aware of risks and benefits of leaving. Condition: stable. Discharge instructions given to patient, Instructed on discharge instructions, follow up and referral plans. medication usage, Demonstrated understanding of instructions, medications, Pt was receptive of discharge instructions/ teaching. Prescriptions given X 2. No special radiology studies were completed. Property sent home with patient. 16:02 Patient left the ED. hs1 Signatures: Sara Hernández, Stick Welder Unit deg Samira Wong, Reg Reg gb Amada Sky, GUNNER RN Vandana Barker RN RN hs1 Mak Hair mm15 Antonette Prescott, AGRICULTURAL AGENT AGRICULTURAL AGENT Fernanda Quinn,RN RN Marti Monroe MD MD fg Crane, Kelsi, RN RN kc3 Maryann Granados Chart Complete RAOUL
== END 2016-11-07 16:02 | disposition left against medical advice (07) | DRG 916 ==
LOC: M ED 10:55 → M ED INP 13:31
PROVIDERS: ADMIT Internal Medicine; ATTEND Internal Medicine
PROC: 30233K1 Transfusion of Nonautologous Frozen Plasma into Peripheral Vein, Percutaneous Approach (ICD-10-PCS; principal; 2016-11-07)
DX: T78.3XXA Angioneurotic edema, initial encounter (principal); E11.9 Type 2 diabetes mellitus without complications; E78.5 Hyperlipidemia, unspecified; E03.9 Hypothyroidism, unspecified; I10 Essential (primary) hypertension; D75.1 Secondary polycythemia; Z86.73 Personal history of transient ischemic attack (TIA), and cerebral infarction without residual deficits; Z79.82 Long term (current) use of aspirin; Z79.84 Long term (current) use of oral hypoglycemic drugs; Z79.899 Other long term (current) drug therapy; F17.200 Nicotine dependence, unspecified, uncomplicated; T44.5X5A Adverse effect of predominantly beta-adrenoreceptor agonists, initial encounter

== ENCOUNTER 2016-11-29 20:42 | Emergency (ER) | payer MEDICARE, MEDICAID ==
[~2016-11-29 20:42] MED LIST: ASPI1TAB PO; DIPH50CA PO; FAMO20TA PO; HYDR25TAB PO; LOSA50TA20 PO; METF500T PO; PRED20TA PO; SYNT88TA2 PO; ZOCO80TA PO
[2016-11-29] MEDS ORDERED: diphenhydrAMINE INJ 50MG/ML VIAL (J1200) As Ordered ONE (21:52)
[2016-11-29] MEDS ORDERED: methylPREDNISolone INJ 125 MG/2 ML VIAL (J2930) As Ordered ONE (21:52)
[2016-11-29] MEDS ORDERED: FAMOTIDINE/NS 20 MG/50 ML BAG (S0028) As Ordered ONE (21:53)
--- NOTE | 2016-11-30 00:28 | EDDOCDS ---
Nurse's Notes [facility] Name: Padmaja Conde Age: 66 yrs Sex: Female : 1950 Arrival Date: 11/29/2016 Time: 20:42 Bed 14 Private MD: Andre Mckoy M.D. Diagnosis: Dysphagia-angioedema Presentation: 11/29 20:49 Presenting complaint: Patient states: difficulty swallowing since this evening. had rs3 supper without any problems. unable to swallow ice tea after supper. Onset: The symptoms/episode began/occurred just prior to arrival. The patient has a history of a previous allergic reaction. The previous reaction involved swelling. Anaphylaxis evaluation, the patient reports or I have noted the following symptoms which indicate a significant risk of anaphylaxis: angioedema. Adult Sepsis Screening: The patient does not have new or worsening altered mentation. Patient's respiratory rate is less than 22. Systolic blood pressure is greater than 100. Patient has a qSOFA score of 0- Negative Sepsis Screen. Suicide/Homicide risk assessment- the patient denies having any suicidal and/or homicidal ideations and does not present with any other emotional, behavioral or mental health complaints. Status: Patient is not a banking services advisor or dependent. Transition of care: patient was not received from another setting of care. 20:49 Acuity: KAREL Level 3 rs3 20:49 Method Of Arrival: Walkin/Carried/Asstd rs3 Triage Assessment: 20:55 General: Appears in no apparent distress. Pain: Denies pain. Respiratory: Reports no rs3 respiratory complaints. Historical: - Allergies: "something in one of my blood pressure medications but the doctor fixed that"; - Home Meds: 1. aspirin 81 mg Oral TbEC 1 tab once daily 2. hydrochlorothiazide 25 mg Oral tab 1 tab once daily 3. levothyroxine 88 mcg Oral tab 1 tab once daily 4. metformin 500 mg Oral tab 1 tab 2 times per day 5. simvastatin 80 mg Oral tab 80 mg nightly 6. prednisone 20 mg Oral tab once daily - PMHx: Diabetes - NIDDM: controlled; Hypercholesterolemia; Hypertension; Hypothyroidism; - PSHx: Tonsillectomy; - Social history: Smoking status: Patient uses tobacco products, light tobacco smoker. No barriers to communication noted, The patient speaks fluent Nigerian. - Family history: Not pertinent. - : The pt / caregiver states he / she is not on anticoagulants. Home medication list is obtained from the patient. - Exposure Risk Screening:: None identified. Screenin:15 Screening information is obtained from the patient. Fall risk: At risk due to age, The af2 following interventions are performed due to a positive Fall Risk Screen: Fall Risk is added to Special Handling on the patient Summary Screen. A Fall Risk Bracelet was applied to the patient. Side Rails are placed in the up position. A Call Dudley is given with instruction to call for help when getting out of bed. Assistance ADL's: requires no assistance with activities of daily living. Abuse/DV Screen: The patient / caregiver reports he/she is: not in a situation that causes fear, pain or injury. Nutritional screening: No deficits noted. Advance Directives: Currently, there is no health care proxy. home support is adequate. Assessment: 21:15 General: Appears in no apparent distress, comfortable, Behavior is appropriate for age, af2 cooperative, pleasant. Neurological: Level of Consciousness is awake, alert, obeys commands. Respiratory: Airway is patent Respiratory effort is even, unlabored, Breath sounds are coarse bilaterally. GI: Reports "feels like I have to swallow over something.". Derm: Skin is normal. 23:05 General: Appears in no apparent distress, Behavior is appropriate for age, cooperative. af2 Neurological: Level of Consciousness is awake, alert. Respiratory: Airway is patent Respiratory effort is even, unlabored. Derm: Skin is normal. 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 provider notified.. Vital Signs: 11/29 20:44 BP 142 / 82; Pulse 105; Resp 20; Temp 97.7(O); Pulse Ox 93% on R/A; Weight 75.57 kg kb5 (M); Height 5 ft. 3 in. (161 cm) (M); Pain 0/10; 22:42 BP 125 / 65 (auto/); af2 22:43 Pulse 84 MON; Resp 18 S; Pulse Ox 92% on R/A; af2 22:57 BP 125 / 66 (auto/); af2 22:58 Pulse 82 MON; Resp 18 S; Pulse Ox 91% on R/A; af2 23:12 BP 127 / 70 (auto/); af2 23:13 Pulse 84 MON; Resp 18 S; Pulse Ox 91% on R/A; af2 23:19 BP 152 / 83 (auto/); af2 23:21 Pulse 98 MON; Resp 18 S; Pulse Ox 94% on R/A; af2 11/30 00:25 BP 133 / 69; Pulse 90; Resp 18 S; Temp 97.4(O); Pulse Ox 96% on R/A; af2 11/29 20:44 Body Mass Index 29.15 (75.57 kg, 161 cm) kb5 Vitals: 11/29 20:44 Log In Time: November 29, 2016 at 20:15. kb5 ED Course: 20:44 Patient visited by Conor Martinez PCA. kb5 20:44 Andre Mckoy is Private Physician. kb5 20:44 Patient moved to Waiting kb5 20:54 Triage Initiated rs3 20:57 Patient moved to Pre RCE rs3 21:06 Vandana Walter RN is Primary Nurse. jmb 21:06 Lisbeth Lujan RN is Primary Nurse. jmb 21:06 Patient moved to 14 jmb 21:15 The patient / caregiver is instructed regarding the plan of care and ED course. Patient af2 has correct armband on for positive identification. classroom monitor on. Pulse ox on. NIBP on. 21:16 Patient visited by Lisbeth Lujan RN. af2 21:26 Chace Mcmahon DO is Attending Physician. mm11 21:26 Patient visited by Chace Mcmahon DO. mm11 21:38 Patient visited by Chace Mcmahon DO. mm11 22:47 Patient visited by Lisbeth Lujan RN. af2 23:06 Patient visited by Lisbeth Lujan RN. af2 23:06 Inserted saline lock: 20 gauge in right antecubital area and blood collected. The af2 patient tolerated the procedure well. 23:20 [facility] [place] was scanned into [employer] and attached to record. gjb 11/30 00:07 Patient visited by Lisbeth Lujan RN. af2 00:07 Andre Mckoy is Referral Physician. mm11 00:11 Patient visited by Lisbeth Lujan RN. af2 00:26 Discontinued IV lock intact, bleeding controlled, pressure dressing applied, No af2 redness/swelling at site. No procedures done that require assistance. Administered Medications: 11/29 22:07 Drug: Solu-MEDROL 125 mg [Solu-Medrol 500 mg intravenous solution (125 mg)] Route: IVP; af2 Site: right antecubital; 22:07 Drug: diphenhydrAMINE 25 mg [diphenhydramine 50 mg/mL injection solution (0.5 mL)] af2 Route: IVP; Site: right antecubital; 22:07 Drug: Famotidine 10 mg [famotidine 10 mg/mL intravenous solution] Route: IVPB; Infused af2 Over: 30 mins; Site: right antecubital; Order Results: There are currently no results for this order. Outcome: 11/30 00:08 Discharge ordered by Provider. mm11 00:26 Discharge Assessment: Patient awake, alert and oriented x 3. No cognitive and/or af2 functional deficits noted. Patient verbalized understanding of disposition instructions. patient administered narcotics - no. The following High Risk Discharge criteria are identified: None. Discharged to home ambulatory. Condition: stable. Discharge instructions given to patient, Instructed on discharge instructions, follow up and referral plans. medication usage, Demonstrated understanding of instructions, medications, Pt was receptive of discharge instructions/ teaching. No special radiology studies were completed. Property :Personal belongings accompany Pt. 00:27 Patient left the ED. af2 Signatures: Conor Martinez, LINING MECHANIC LINING MECHANIC kb5 Chace Mcmahon DO DO mm11 Ansley Kelsey RN RN rs3 Cullen Shoemaker RN RN jmb Fulton, Amber, RN RN af2 Jenny Santillan MTDD
--- NOTE | 2016-11-30 00:28 | EDDOCDS ---
Physician Documentation [facility] Name: Padmaja Conde Age: 66 yrs Sex: Female : 1950 Arrival Date: 11/29/2016 Time: 20:42 Bed 14 Private MD: Andre Mckoy M.D. Disposition: 11/30/16 00:08 Discharged to Home/Self Care. Impression: Dysphagia - angioedema. - Condition is Stable. - Discharge Instructions: Angioedema, Angioedema, [id number]. - Prescriptions for Prednisone 20 mg Oral Tablet - take 2 tablet by ORAL route once daily for 5 days; 10 tablet. - Medication Reconciliation, Local Pharmacy Hours form. - Follow up: Andre Mckoy; When: 2 - 3 days; Reason: Continuance of care. - Problem is an acute exacerbation. - Symptoms are resolved. Historical: - Allergies: "something in one of my blood pressure medications but the doctor fixed that"; - Home Meds: 1. aspirin 81 mg Oral TbEC 1 tab once daily 2. hydrochlorothiazide 25 mg Oral tab 1 tab once daily 3. levothyroxine 88 mcg Oral tab 1 tab once daily 4. metformin 500 mg Oral tab 1 tab 2 times per day 5. simvastatin 80 mg Oral tab 80 mg nightly 6. prednisone 20 mg Oral tab once daily - PMHx: Diabetes - NIDDM: controlled; Hypercholesterolemia; Hypertension; Hypothyroidism; - PSHx: Tonsillectomy; - Social history: Smoking status: Patient uses tobacco products, light tobacco smoker. No barriers to communication noted, The patient speaks fluent Arabic. - Family history: Not pertinent. - : The pt / caregiver states he / she is not on anticoagulants. Home medication list is obtained from the patient. - Exposure Risk Screening:: None identified. Vital Signs: 11/29 20:44 BP 142 / 82; Pulse 105; Resp 20; Temp 97.7(O); Pulse Ox 93% on R/A; Weight 75.57 kg / kb5 166.6 lbs (M); Height 5 ft. 3 in. (161 cm) (M); Pain 0/10; 22:42 BP 125 / 65 (auto/); af2 22:43 Pulse 84 MON; Resp 18 S; Pulse Ox 92% on R/A; af2 22:57 BP 125 / 66 (auto/); af2 22:58 Pulse 82 MON; Resp 18 S; Pulse Ox 91% on R/A; af2 23:12 BP 127 / 70 (auto/); af2 23:13 Pulse 84 MON; Resp 18 S; Pulse Ox 91% on R/A; af2 23:19 BP 152 / 83 (auto/); af2 23:21 Pulse 98 MON; Resp 18 S; Pulse Ox 94% on R/A; af2 11/30 00:25 BP 133 / 69; Pulse 90; Resp 18 S; Temp 97.4(O); Pulse Ox 96% on R/A; af2 11/29 20:44 Body Mass Index 29.15 (75.57 kg, 161 cm) kb5 MDM: 11/29 21:39 IV Saline Lock ordered. mm11 21:39 Solu-MEDROL 125 mg IVP once ordered. mm11 21:39 diphenhydrAMINE 25 mg IVP once ordered. mm11 21:39 Famotidine 10 mg IVPB once over 30 mins; dilute in 50mL of NS ordered. mm11 21:39 Air Defense Specialist/Pulse Ox/q 30 min VS ordered. mm11 22:27 Financial registration complete. rian 23:20 [facility] Payment Agreement was scanned into [employer] and attached to record. rian Administered Medications: 22:07 Drug: Solu-MEDROL 125 mg [Solu-Medrol 500 mg intravenous solution (125 mg)] Route: IVP; af2 Site: right antecubital; 22:07 Drug: diphenhydrAMINE 25 mg [diphenhydramine 50 mg/mL injection solution (0.5 mL)] af2 Route: IVP; Site: right antecubital; 22:07 Drug: Famotidine 10 mg [famotidine 10 mg/mL intravenous solution] Route: IVPB; Infused af2 Over: 30 mins; Site: right antecubital; Signatures: Chace Mcmahon DO DO mm11 Ansley Kelsey RN RN rs3 Lisbeth Lujan RN RN af2 Jenny Santillan The chart was reviewed and I authenticate all verbal orders and agree with the evaluation and treatment provided.Attachments: 23:20 [facility] Payment Agreement rian MTDD
--- NOTE | 2016-12-02 01:28 | EDDOCDS ---
Physician Documentation [facility] Name: Padmaja Conde Age: 66 yrs Sex: Female : 1950 Arrival Date: 11/29/2016 Time: 20:42 Bed 14 Private MD: Andre Mckoy M.D. Disposition: 11/30/16 00:08 Discharged to Home/Self Care. Impression: Dysphagia - angioedema. - Condition is Stable. - Discharge Instructions: Angioedema, Angioedema, [id number]. - Prescriptions for Prednisone 20 mg Oral Tablet - take 2 tablet by ORAL route once daily for 5 days; 10 tablet. - Medication Reconciliation, Local Pharmacy Hours form. - Follow up: Andre Mckoy; When: 2 - 3 days; Reason: Continuance of care. - Problem is an acute exacerbation. - Symptoms are resolved. Historical: - Allergies: "something in one of my blood pressure medications but the doctor fixed that"; - Home Meds: 1. aspirin 81 mg Oral TbEC 1 tab once daily 2. hydrochlorothiazide 25 mg Oral tab 1 tab once daily 3. levothyroxine 88 mcg Oral tab 1 tab once daily 4. metformin 500 mg Oral tab 1 tab 2 times per day 5. simvastatin 80 mg Oral tab 80 mg nightly 6. prednisone 20 mg Oral tab once daily - PMHx: Diabetes - NIDDM: controlled; Hypercholesterolemia; Hypertension; Hypothyroidism; - PSHx: Tonsillectomy; - Social history: Smoking status: Patient uses tobacco products, light tobacco smoker. No barriers to communication noted, The patient speaks fluent Occitan. - Family history: Not pertinent. - : The pt / caregiver states he / she is not on anticoagulants. Home medication list is obtained from the patient. - Exposure Risk Screening:: None identified. Vital Signs: 11/29 20:44 BP 142 / 82; Pulse 105; Resp 20; Temp 97.7(O); Pulse Ox 93% on R/A; Weight 75.57 kg / kb5 166.6 lbs (M); Height 5 ft. 3 in. (161 cm) (M); Pain 0/10; 22:42 BP 125 / 65 (auto/); af2 22:43 Pulse 84 MON; Resp 18 S; Pulse Ox 92% on R/A; af2 22:57 BP 125 / 66 (auto/); af2 22:58 Pulse 82 MON; Resp 18 S; Pulse Ox 91% on R/A; af2 23:12 BP 127 / 70 (auto/); af2 23:13 Pulse 84 MON; Resp 18 S; Pulse Ox 91% on R/A; af2 23:19 BP 152 / 83 (auto/); af2 23:21 Pulse 98 MON; Resp 18 S; Pulse Ox 94% on R/A; af2 11/30 00:25 BP 133 / 69; Pulse 90; Resp 18 S; Temp 97.4(O); Pulse Ox 96% on R/A; af2 11/29 20:44 Body Mass Index 29.15 (75.57 kg, 161 cm) kb5 MDM: 11/29 21:39 IV Saline Lock ordered. mm11 21:39 Solu-MEDROL 125 mg IVP once ordered. mm11 21:39 diphenhydrAMINE 25 mg IVP once ordered. mm11 21:39 Famotidine 10 mg IVPB once over 30 mins; dilute in 50mL of NS ordered. mm11 21:39 It Help Desk Associate/Pulse Ox/q 30 min VS ordered. mm11 22:27 Financial registration complete. [facility] 23:20 [facility] Payment Agreement was scanned into [email or web address] and attached to record. b 11/30 11:48 T-Sheet-- Draft Copy was scanned into [email or web address] and attached to record. gb Administered Medications: 11/29 22:07 Drug: Solu-MEDROL 125 mg [Solu-Medrol 500 mg intravenous solution (125 mg)] Route: IVP; af2 Site: right antecubital; 22:07 Drug: diphenhydrAMINE 25 mg [diphenhydramine 50 mg/mL injection solution (0.5 mL)] af2 Route: IVP; Site: right antecubital; 22:07 Drug: Famotidine 10 mg [famotidine 10 mg/mL intravenous solution] Route: IVPB; Infused af2 Over: 30 mins; Site: right antecubital; Signatures: Samira Wong, Reg Reg gb Chace Mcmahon, DO mm11 Ansley Kelsey RN RN rs3 Lisbeth Lujan RN RN af2 Jenny Santillan [facility] The chart was reviewed and I authenticate all verbal orders and agree with the evaluation and treatment provided.Attachments: 23:20 [facility] Payment Agreement gjb 11/30 11:48 T-Sheet-- Draft Copy gb Chart Complete MTDD
--- NOTE | 2016-12-02 01:28 | EDDOCDS ---
Nurse's Notes [facility] Name: Padmaja Conde Age: 66 yrs Sex: Female : 1950 Arrival Date: 11/29/2016 Time: 20:42 Bed 14 Private MD: Andre Mckoy M.D. Diagnosis: Dysphagia-angioedema Presentation: 11/29 20:49 Presenting complaint: Patient states: difficulty swallowing since this evening. had rs3 supper without any problems. unable to swallow ice tea after supper. Onset: The symptoms/episode began/occurred just prior to arrival. The patient has a history of a previous allergic reaction. The previous reaction involved swelling. Anaphylaxis evaluation, the patient reports or I have noted the following symptoms which indicate a significant risk of anaphylaxis: angioedema. Adult Sepsis Screening: The patient does not have new or worsening altered mentation. Patient's respiratory rate is less than 22. Systolic blood pressure is greater than 100. Patient has a qSOFA score of 0- Negative Sepsis Screen. Suicide/Homicide risk assessment- the patient denies having any suicidal and/or homicidal ideations and does not present with any other emotional, behavioral or mental health complaints. Status: Patient is not a customer servicer or dependent. Transition of care: patient was not received from another setting of care. 20:49 Acuity: KAREL Level 3 rs3 20:49 Method Of Arrival: Walkin/Carried/Asstd rs3 Triage Assessment: 20:55 General: Appears in no apparent distress. Pain: Denies pain. Respiratory: Reports no rs3 respiratory complaints. Historical: - Allergies: "something in one of my blood pressure medications but the doctor fixed that"; - Home Meds: 1. aspirin 81 mg Oral TbEC 1 tab once daily 2. hydrochlorothiazide 25 mg Oral tab 1 tab once daily 3. levothyroxine 88 mcg Oral tab 1 tab once daily 4. metformin 500 mg Oral tab 1 tab 2 times per day 5. simvastatin 80 mg Oral tab 80 mg nightly 6. prednisone 20 mg Oral tab once daily - PMHx: Diabetes - NIDDM: controlled; Hypercholesterolemia; Hypertension; Hypothyroidism; - PSHx: Tonsillectomy; - Social history: Smoking status: Patient uses tobacco products, light tobacco smoker. No barriers to communication noted, The patient speaks fluent Tajik. - Family history: Not pertinent. - : The pt / caregiver states he / she is not on anticoagulants. Home medication list is obtained from the patient. - Exposure Risk Screening:: None identified. Screenin:15 Screening information is obtained from the patient. Fall risk: At risk due to age, The af2 following interventions are performed due to a positive Fall Risk Screen: Fall Risk is added to Special Handling on the patient Summary Screen. A Fall Risk Bracelet was applied to the patient. Side Rails are placed in the up position. A Call Dudley is given with instruction to call for help when getting out of bed. Assistance ADL's: requires no assistance with activities of daily living. Abuse/DV Screen: The patient / caregiver reports he/she is: not in a situation that causes fear, pain or injury. Nutritional screening: No deficits noted. Advance Directives: Currently, there is no health care proxy. home support is adequate. Assessment: 21:15 General: Appears in no apparent distress, comfortable, Behavior is appropriate for age, af2 cooperative, pleasant. Neurological: Level of Consciousness is awake, alert, obeys commands. Respiratory: Airway is patent Respiratory effort is even, unlabored, Breath sounds are coarse bilaterally. GI: Reports "feels like I have to swallow over something.". Derm: Skin is normal. 23:05 General: Appears in no apparent distress, Behavior is appropriate for age, cooperative. af2 Neurological: Level of Consciousness is awake, alert. Respiratory: Airway is patent Respiratory effort is even, unlabored. Derm: Skin is normal. 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 provider notified.. Vital Signs: 11/29 20:44 BP 142 / 82; Pulse 105; Resp 20; Temp 97.7(O); Pulse Ox 93% on R/A; Weight 75.57 kg kb5 (M); Height 5 ft. 3 in. (161 cm) (M); Pain 0/10; 22:42 BP 125 / 65 (auto/); af2 22:43 Pulse 84 MON; Resp 18 S; Pulse Ox 92% on R/A; af2 22:57 BP 125 / 66 (auto/); af2 22:58 Pulse 82 MON; Resp 18 S; Pulse Ox 91% on R/A; af2 23:12 BP 127 / 70 (auto/); af2 23:13 Pulse 84 MON; Resp 18 S; Pulse Ox 91% on R/A; af2 23:19 BP 152 / 83 (auto/); af2 23:21 Pulse 98 MON; Resp 18 S; Pulse Ox 94% on R/A; af2 11/30 00:25 BP 133 / 69; Pulse 90; Resp 18 S; Temp 97.4(O); Pulse Ox 96% on R/A; af2 11/29 20:44 Body Mass Index 29.15 (75.57 kg, 161 cm) kb5 Vitals: 11/29 20:44 Log In Time: November 29, 2016 at 20:15. kb5 ED Course: 20:44 Patient visited by Conor Martinez PCA. kb5 20:44 Andre Mckoy is Private Physician. kb5 20:44 Patient moved to Waiting kb5 20:54 Triage Initiated rs3 20:57 Patient moved to Pre RCE rs3 21:06 Vandana Walter RN is Primary Nurse. jmb 21:06 Lisbeth Lujan RN is Primary Nurse. jmb 21:06 Patient moved to 14 jmb 21:15 The patient / caregiver is instructed regarding the plan of care and ED course. Patient af2 has correct armband on for positive identification. telemetry monitor on. Pulse ox on. NIBP on. 21:16 Patient visited by Lisbeth Lujan RN. af2 21:26 Chace Mcmahon DO is Attending Physician. mm11 21:26 Patient visited by Chace Mcmahon DO. mm11 21:38 Patient visited by Chace Mcmahon DO. mm11 22:47 Patient visited by Lisbeth Lujan RN. af2 23:06 Patient visited by Lisbeth Lujan RN. af2 23:06 Inserted saline lock: 20 gauge in right antecubital area and blood collected. The af2 patient tolerated the procedure well. 23:20 [facility] [place] was scanned into [employer] and attached to record. gjb 11/30 00:07 Patient visited by Lisbeth Lujan RN. af2 00:07 Andre Mckoy is Referral Physician. mm11 00:11 Patient visited by Lisbeth Lujan RN. af2 00:26 Discontinued IV lock intact, bleeding controlled, pressure dressing applied, No af2 redness/swelling at site. No procedures done that require assistance. 11:48 T-Sheet-- Draft Copy was scanned into i-drive and attached to record. gb Administered Medications: 11/29 22:07 Drug: Solu-MEDROL 125 mg [Solu-Medrol 500 mg intravenous solution (125 mg)] Route: IVP; af2 Site: right antecubital; 22:07 Drug: diphenhydrAMINE 25 mg [diphenhydramine 50 mg/mL injection solution (0.5 mL)] af2 Route: IVP; Site: right antecubital; 22:07 Drug: Famotidine 10 mg [famotidine 10 mg/mL intravenous solution] Route: IVPB; Infused af2 Over: 30 mins; Site: right antecubital; Order Results: There are currently no results for this order. Outcome: 11/30 00:08 Discharge ordered by Provider. mm11 00:26 Discharge Assessment: Patient awake, alert and oriented x 3. No cognitive and/or af2 functional deficits noted. Patient verbalized understanding of disposition instructions. patient administered narcotics - no. The following High Risk Discharge criteria are identified: None. Discharged to home ambulatory. Condition: stable. Discharge instructions given to patient, Instructed on discharge instructions, follow up and referral plans. medication usage, Demonstrated understanding of instructions, medications, Pt was receptive of discharge instructions/ teaching. No special radiology studies were completed. Property :Personal belongings accompany Pt. 00:27 Patient left the ED. af2 Signatures: Samira Wong, Reg Reg gb Conor Martinez, CAFE OPERATOR CAFE OPERATOR kb5 Chace Mcmahon, DO mm11 Ansley Kelsey RN RN rs3 Cullen Shoemaker RN RN Lisbeth Guerra RN RN af2 Jenny Santillan Chart Complete MTDD
--- NOTE | 2016-12-02 01:28 | EDDOCDS ---
Physician Documentation [facility] Name: Padmaja Conde Age: 66 yrs Sex: Female : 1950 Arrival Date: 11/29/2016 Time: 20:42 Bed 14 Private MD: Andre Mckoy M.D. Disposition: 11/30/16 00:08 Discharged to Home/Self Care. Impression: Dysphagia - angioedema. - Condition is Stable. - Discharge Instructions: Angioedema, Angioedema, [id number]. - Prescriptions for Prednisone 20 mg Oral Tablet - take 2 tablet by ORAL route once daily for 5 days; 10 tablet. - Medication Reconciliation, Local Pharmacy Hours form. - Follow up: Andre Mckoy; When: 2 - 3 days; Reason: Continuance of care. - Problem is an acute exacerbation. - Symptoms are resolved. Historical: - Allergies: "something in one of my blood pressure medications but the doctor fixed that"; - Home Meds: 1. aspirin 81 mg Oral TbEC 1 tab once daily 2. hydrochlorothiazide 25 mg Oral tab 1 tab once daily 3. levothyroxine 88 mcg Oral tab 1 tab once daily 4. metformin 500 mg Oral tab 1 tab 2 times per day 5. simvastatin 80 mg Oral tab 80 mg nightly 6. prednisone 20 mg Oral tab once daily - PMHx: Diabetes - NIDDM: controlled; Hypercholesterolemia; Hypertension; Hypothyroidism; - PSHx: Tonsillectomy; - Social history: Smoking status: Patient uses tobacco products, light tobacco smoker. No barriers to communication noted, The patient speaks fluent Setsw[place]. - Family history: Not pertinent. - : The pt / caregiver states he / she is not on anticoagulants. Home medication list is obtained from the patient. - Exposure Risk Screening:: None identified. Vital Signs: 11/29 20:44 BP 142 / 82; Pulse 105; Resp 20; Temp 97.7(O); Pulse Ox 93% on R/A; Weight 75.57 kg / kb5 166.6 lbs (M); Height 5 ft. 3 in. (161 cm) (M); Pain 0/10; 22:42 BP 125 / 65 (auto/); af2 22:43 Pulse 84 MON; Resp 18 S; Pulse Ox 92% on R/A; af2 22:57 BP 125 / 66 (auto/); af2 22:58 Pulse 82 MON; Resp 18 S; Pulse Ox 91% on R/A; af2 23:12 BP 127 / 70 (auto/); af2 23:13 Pulse 84 MON; Resp 18 S; Pulse Ox 91% on R/A; af2 23:19 BP 152 / 83 (auto/); af2 23:21 Pulse 98 MON; Resp 18 S; Pulse Ox 94% on R/A; af2 11/30 00:25 BP 133 / 69; Pulse 90; Resp 18 S; Temp 97.4(O); Pulse Ox 96% on R/A; af2 11/29 20:44 Body Mass Index 29.15 (75.57 kg, 161 cm) kb5 MDM: 11/29 21:39 IV Saline Lock ordered. mm11 21:39 Solu-MEDROL 125 mg IVP once ordered. mm11 21:39 diphenhydrAMINE 25 mg IVP once ordered. mm11 21:39 Famotidine 10 mg IVPB once over 30 mins; dilute in 50mL of NS ordered. mm11 21:39 Impregnating Tank Operator/Pulse Ox/q 30 min VS ordered. mm11 22:27 Financial registration complete. [facility] 23:20 [facility] Payment Agreement was scanned into [employer] and attached to record. b 11/30 11:48 T-Sheet-- Draft Copy was scanned into [employer] and attached to record. gb Administered Medications: 11/29 22:07 Drug: Solu-MEDROL 125 mg [Solu-Medrol 500 mg intravenous solution (125 mg)] Route: IVP; af2 Site: right antecubital; 22:07 Drug: diphenhydrAMINE 25 mg [diphenhydramine 50 mg/mL injection solution (0.5 mL)] af2 Route: IVP; Site: right antecubital; 22:07 Drug: Famotidine 10 mg [famotidine 10 mg/mL intravenous solution] Route: IVPB; Infused af2 Over: 30 mins; Site: right antecubital; Signatures: Samira Wong, Reg Reg gb Chace Mcmahon, DO mm11 Ansley Kelsey RN RN rs3 Lisbeth Lujan RN RN af2 Jenny Santillan [facility] The chart was reviewed and I authenticate all verbal orders and agree with the evaluation and treatment provided.Attachments: 23:20 [facility] [place] Agreement gjb 11/30 11:48 T-Sheet-- Draft Copy gb Chart Complete MTDD
== END 2016-11-30 00:27 | disposition home or self-care (01) ==
LOC: M ED 20:42
DX: T78.3XXA Angioneurotic edema, initial encounter (principal); R13.10 Dysphagia, unspecified; E11.9 Type 2 diabetes mellitus without complications; E78.00 Pure hypercholesterolemia, unspecified; I10 Essential (primary) hypertension; E03.9 Hypothyroidism, unspecified; Z72.0 Tobacco use; Z79.82 Long term (current) use of aspirin; Z79.899 Other long term (current) drug therapy
CPT/HCPCS: 36415; 93041; 96374; 96375; 99284; J1200; J2930

== ENCOUNTER 2016-12-11 11:18 | Emergency (ER) | payer MEDICARE, MEDICAID ==
[~2016-12-11] VITALS: Ht 162.6 cm; Wt 72.6 kg
[2016-12-11 11:26] VITALS: BP 145/88
[2016-12-11] MEDS ORDERED: CLEO300C2 PO (11:54)
== END 2016-12-11 12:17 | disposition home or self-care (01) ==
LOC: M ED 12:02
DX: K04.7 Periapical abscess without sinus (principal); Z79.84 Long term (current) use of oral hypoglycemic drugs; Z79.82 Long term (current) use of aspirin; Z79.899 Other long term (current) drug therapy; Z79.52 Long term (current) use of systemic steroids; F17.210 Nicotine dependence, cigarettes, uncomplicated; E78.00 Pure hypercholesterolemia, unspecified; I10 Essential (primary) hypertension; E11.9 Type 2 diabetes mellitus without complications; M54.9 Dorsalgia, unspecified

== ENCOUNTER → 2016-12-28 | Outpatient (CLI) | payer MEDICARE, MEDICAID ==
[~2016-12-28] MED LIST changes: +CLEO300C2 PO; +E-Z PAQUE 60% w/v SUSP 355ML BOTTLE As Ordered ONE; +E-Z-GAS II EFFERVESCENT PACKET (SODIUM BICARB./CITRIC ACID/SIMETHICONE) As Ordered ONE; +E-Z-HD 98% w/w 340GM SUSP BTL As Ordered ONE
--- NOTE | 2016-12-28 16:47 | REP ---
UPPER GI, AIR CONTRAST: The procedure was performed under the direct supervision of Dr. Sellers. The images were reviewed with Dr. Sellers. The tire room supervisor film shows no organomegaly or pathological masses. The intestinal gas pattern is nonspecific. There are left paravertebral vascular calcifications which may represent an abdominal aortic aneurysm. Recommend ultrasound for further evaluation. Liquid barium and gas-producing granules were given in the erect position as well as liquid barium in the prone oblique position in order to perform a double contrast upper GI examination. The oral and pharyngeal stages of deglutition are unremarkable. During esophageal transport, there are tertiary waves demonstrated. There is no esophagitis, stricture or mucosal ring. There is a sliding type hiatal hernia present. Gastroesophageal reflux is not demonstrated on this examination. The stomach munson are normally outlined. The rugal folds are smooth and regular. There is no gastritis, neoplasm or ulcer disease. The duodenal munson are normally outlined. The mucosal folds are smooth and regular. There is no duodenitis, pancreatitis, peptic ulcer disease or neoplasm. The visualized portion of the proximal small bowel appears normal in course and caliber. IMPRESSION: 1. On the tire room supervisor film there are left paravertebral vascular calcifications which may represent an abdominal aortic aneurysm. Recommend ultrasound for further evaluation. 2. Esophageal dysmotility. 3. There is a sliding type hiatal hernia present. 2 minutes and 31 seconds of fluoroscopy time was utilized for this procedure. Reviewed by JOSHUA Travis 12/29/2016 04:13 PEdited and Signed by Sher Sellers MD 12/30/2016 12:24 P
== END ==
LOC: M RAD 09:17
PROVIDERS: ATTEND Family Medicine
DX: R13.10 Dysphagia, unspecified (principal); K44.9 Diaphragmatic hernia without obstruction or gangrene

== ENCOUNTER 2017-01-22 10:24 | Emergency (ER) | payer MEDICARE, MEDICAID ==
[~2017-01-22] VITALS: Ht 160 cm; Wt 76.7 kg
[2017-01-22 10:24] VITALS: BP 146/81
[~2017-01-22 10:24] MED LIST changes: -E-Z PAQUE 60% w/v SUSP 355ML BOTTLE As Ordered ONE; -E-Z-GAS II EFFERVESCENT PACKET (SODIUM BICARB./CITRIC ACID/SIMETHICONE) As Ordered ONE; -E-Z-HD 98% w/w 340GM SUSP BTL As Ordered ONE
[2017-01-22] MEDS ORDERED: PRED20TA PO (11:20)
[2017-01-22] MEDS ORDERED: CLEO150C PO (11:20)
== END 2017-01-22 11:29 | disposition home or self-care (01) ==
LOC: M ED 11:26
DX: R60.9 Edema, unspecified (principal); E11.9 Type 2 diabetes mellitus without complications; I10 Essential (primary) hypertension; F17.200 Nicotine dependence, unspecified, uncomplicated; Z79.82 Long term (current) use of aspirin; Z79.84 Long term (current) use of oral hypoglycemic drugs; Z79.899 Other long term (current) drug therapy; Z88.8 Allergy status to other drugs, medicaments and biological substances

== ENCOUNTER 2017-03-12 13:19 | Emergency (ER) | payer MEDICARE, MEDICAID ==
[~2017-03-12] VITALS: Ht 162.6 cm; Wt 78.7 kg
[~2017-03-12 13:19] MED LIST changes: +CLEO150C PO
[2017-03-12] MEDS ORDERED: diphenhydrAMINE INJ 50MG/ML VIAL (J1200) IV STA (14:16)
[2017-03-12] MEDS ORDERED: EPINEPHrine INJ 1 MG/ML 1ML AMP SC STA (14:20)
[2017-03-12] MEDS ORDERED: methylPREDNISolone INJ 125 MG/2 ML VIAL (J2930) IV ONE (14:30)
[2017-03-12] MEDS ORDERED: FAMOTIDINE IV BAG 20 MG in APPROPRIATE DILUENT 1 EA IV ONE (14:30)
[2017-03-12 14:48] LABS: BASO # 0.1 K/mm3 (0.0-0.2); BASO % 0.7 % (0.0-1.0); EOS # 0.5 K/mm3 (0.0-0.50); EOS % 4.2 % (0.0-3.0); LARGE UNSTAINED CELL # 0.1 K/mm3 (0.0-0.4); LARGE UNSTAINED CELL % 1.2 % (0.0-4.0); LYMPH # 2.3 K/mm3 (1.5-4.5); LYMPH % 18.4 % (24.0-44.0); MEAN CORPUSCULAR HEMOGLOBIN 32.9 pg (27.0-33.0); MEAN CORPUSCULAR HGB CONC 34.7 g/dl (32.0-36.5); MEAN CORPUSCULAR VOLUME 94.8 fl (80.0-96.0); MONO # 0.6 K/mm3 (0.0-0.8); MONO % 5.2 % (0.0-5.0); NEUTROPHILS # 8.3 K/mm3 (1.8-7.7); NEUTROPHILS % 70.3 % (36.0-66.0); PLATELET COUNT, AUTOMATED 191 k/mm3 (150-450); RED CELL DISTRIBUTION WIDTH 12.6 % (11.5-14.5); WHITE BLOOD COUNT 11.8 K/mm3 (4.0-10.0)
[2017-03-12 15:16] LABS: ANION GAP 9 MEQ/L (8-16); BLOOD UREA NITROGEN 16 MG/DL (7-18); CALCIUM LEVEL 9.1 MG/DL (8.8-10.2); CARBON DIOXIDE LEVEL 26 MEQ/L (21-32); CHLORIDE LEVEL 105 MEQ/L (98-107); CREATININE FOR GFR 0.71 MG/DL (0.55-1.02); GLOMERULAR FILTRATION RATE > 60.0 (>45); GLUCOSE, FASTING 130 MG/DL (80-110); POTASSIUM SERUM 3.6 MEQ/L (3.5-5.1); SODIUM LEVEL 140 MEQ/L (136-145)
[2017-03-12 16:41] VITALS: BP 142/84
[2017-03-12] MEDS ORDERED: PRED20TA PO (17:11)
== END 2017-03-12 17:40 | disposition home or self-care (01) ==
LOC: M ED 15:00
DX: T78.40XA Allergy, unspecified, initial encounter (principal); T78.3XXA Angioneurotic edema, initial encounter; X58.XXXA Exposure to other specified factors, initial encounter; Y92.89 Other specified places as the place of occurrence of the external cause; Y93.89 Activity, other specified; Y99.9 Unspecified external cause status; I10 Essential (primary) hypertension; E78.00 Pure hypercholesterolemia, unspecified; E11.9 Type 2 diabetes mellitus without complications; F17.200 Nicotine dependence, unspecified, uncomplicated; Z79.82 Long term (current) use of aspirin; Z79.899 Other long term (current) drug therapy; Z88.8 Allergy status to other drugs, medicaments and biological substances
CPT/HCPCS: 80048; 85025; 86140; 93041; 96374; 96375; 99284; J1200; J2930

== ENCOUNTER 2017-05-04 09:08 | Emergency (ER) | payer MEDICARE, MEDICAID ==
[~2017-05-04 09:08] MED LIST changes: -METF500T PO; +METF500T13 PO
[2017-05-04] MEDS ORDERED: diphenhydrAMINE INJ 50MG/ML VIAL (J1200) IV STA (10:08)
[2017-05-04] MEDS ORDERED: methylPREDNISolone INJ 125 MG/2 ML VIAL (J2930) IV ONE (10:15)
[2017-05-04] MEDS ORDERED: FAMOTIDINE IV BAG 20 MG in APPROPRIATE DILUENT 1 EA IV ONE (10:15)
[2017-05-04 10:39] LABS: BASO # 0.1 K/mm3 (0.0-0.2); BASO % 0.5 % (0.0-1.0); EOS # 0.3 K/mm3 (0.0-0.50); EOS % 2.5 % (0.0-3.0); LARGE UNSTAINED CELL # 0.1 K/mm3 (0.0-0.4); LARGE UNSTAINED CELL % 0.5 % (0.0-4.0); LYMPH # 0.9 K/mm3 (1.5-4.5); LYMPH % 7.9 % (24.0-44.0); MEAN CORPUSCULAR HEMOGLOBIN 34.6 pg (27.0-33.0); MEAN CORPUSCULAR HGB CONC 36.3 g/dl (32.0-36.5); MEAN CORPUSCULAR VOLUME 95.3 fl (80.0-96.0); MONO # 0.2 K/mm3 (0.0-0.8); MONO % 2.1 % (0.0-5.0); NEUTROPHILS # 9.7 K/mm3 (1.8-7.7); NEUTROPHILS % 86.5 % (36.0-66.0); PLATELET COUNT, AUTOMATED 179 k/mm3 (150-450); WHITE BLOOD COUNT 11.2 K/mm3 (4.0-10.0)
[2017-05-04 11:03] LABS: ALBUMIN/GLOBULIN RATIO 1.08 (1.00-1.93); ALKALINE PHOSPHATASE 63 U/L (45-117); ALT/SGPT 20 U/L (12-78); ANION GAP 6 MEQ/L (8-16); AST/SGOT 9 U/L (15-37); BILIRUBIN,DIRECT 0.1 MG/DL (0.0-0.2); BILIRUBIN,TOTAL 0.5 MG/DL (0.2-1.0); BLOOD UREA NITROGEN 15 MG/DL (7-18); CALCIUM LEVEL 9.9 MG/DL (8.8-10.2); CARBON DIOXIDE LEVEL 28 MEQ/L (21-32); CHLORIDE LEVEL 102 MEQ/L (98-107); COMPLEMENT C4 28.5 MG/DL (10-40); CREATININE FOR GFR 0.69 MG/DL (0.55-1.02); GLOMERULAR FILTRATION RATE > 60.0 (>45); GLUCOSE, FASTING 123 MG/DL (80-110); POTASSIUM SERUM 3.5 MEQ/L (3.5-5.1); SODIUM LEVEL 136 MEQ/L (136-145); TOTAL PROTEIN 7.7 GM/DL (6.4-8.2)
[2017-05-04 11:09] LABS: ERYTHROCYTE SEDIMENTATION RATE 13 mm/hr (0-30)
[2017-05-04 12:21] VITALS: BP 135/70
== END 2017-05-04 12:25 | disposition home or self-care (01) ==
LOC: M ED 09:08
DX: T78.3XXA Angioneurotic edema, initial encounter (principal); X58.XXXA Exposure to other specified factors, initial encounter; Y92.9 Unspecified place or not applicable; Y93.9 Activity, unspecified; Y99.8 Other external cause status; E11.9 Type 2 diabetes mellitus without complications; I10 Essential (primary) hypertension; E03.9 Hypothyroidism, unspecified; F17.200 Nicotine dependence, unspecified, uncomplicated; Z79.82 Long term (current) use of aspirin; Z79.899 Other long term (current) drug therapy; Z88.8 Allergy status to other drugs, medicaments and biological substances; Z91.013 Allergy to seafood
CPT/HCPCS: 36415; 80048; 80076; 85025; 85652; 86140; 86160; 86161; 96365; 96375; 99284; J1200; J2930

== ENCOUNTER 2017-05-21 10:29 | Emergency (ER) | payer MEDICARE, MEDICAID ==
[~2017-05-21] VITALS: Ht 162.6 cm; Wt 79.4 kg
[2017-05-21 10:30] VITALS: BP 155/93
[2017-05-21] MEDS ORDERED: SIMV80TA PO (10:41)
[2017-05-21] MEDS ORDERED: AUGM875T28 PO (11:09)
== END 2017-05-21 11:21 | disposition home or self-care (01) ==
LOC: M ED 10:29
DX: K02.9 Dental caries, unspecified (principal); E78.00 Pure hypercholesterolemia, unspecified; I10 Essential (primary) hypertension; F17.200 Nicotine dependence, unspecified, uncomplicated; T78.3XXA Angioneurotic edema, initial encounter; Y92.9 Unspecified place or not applicable; Y93.9 Activity, unspecified; Z87.01 Personal history of pneumonia (recurrent); E11.9 Type 2 diabetes mellitus without complications; E03.9 Hypothyroidism, unspecified; M54.9 Dorsalgia, unspecified; Z79.82 Long term (current) use of aspirin; Z79.899 Other long term (current) drug therapy; Z79.84 Long term (current) use of oral hypoglycemic drugs; Z91.013 Allergy to seafood; Z88.8 Allergy status to other drugs, medicaments and biological substances

== ENCOUNTER → 2017-06-14 | Outpatient (CLI) | payer MEDICARE, MEDICAID ==
[~2017-06-14] MED LIST changes: +AUGM875T28 PO; +SIMV80TA PO
[2017-06-14 14:27] LABS: BASO # 0.1 K/mm3 (0.0-0.2); BASO % 0.6 % (0.0-1.0); EOS # 0.4 K/mm3 (0.0-0.50); EOS % 3.8 % (0.0-3.0); LYMPH # 2.3 K/mm3 (1.5-4.5); LYMPH % 21.2 % (24.0-44.0); MEAN CORPUSCULAR HEMOGLOBIN 33.8 pg (27.0-33.0); MEAN CORPUSCULAR HGB CONC 35.4 g/dl (32.0-36.5); MEAN CORPUSCULAR VOLUME 95.7 fl (80.0-96.0); MONO # 0.5 K/mm3 (0.0-0.8); MONO % 4.7 % (0.0-5.0); NEUTROPHILS # 7.2 K/mm3 (1.8-7.7); NEUTROPHILS % 67.6 % (36.0-66.0); RED CELL DISTRIBUTION WIDTH 12.6 % (11.5-14.5); WHITE BLOOD COUNT 10.6 K/mm3 (4.0-10.0)
[2017-06-14 14:46] LABS: ALBUMIN 4.2 GM/DL (3.2-5.2); ALBUMIN/GLOBULIN RATIO 1.27 (1.00-1.93); ALKALINE PHOSPHATASE 71 U/L (45-117); ALT/SGPT 23 U/L (12-78); ANION GAP 9 MEQ/L (8-16); AST/SGOT 5 U/L (15-37); BILIRUBIN,TOTAL 0.6 MG/DL (0.2-1.0); BLOOD UREA NITROGEN 12 MG/DL (7-18); CALCIUM LEVEL 9.6 MG/DL (8.8-10.2); CARBON DIOXIDE LEVEL 29 MEQ/L (21-32); CHLORIDE LEVEL 105 MEQ/L (98-107); CREATININE FOR GFR 0.66 MG/DL (0.55-1.02); GLOMERULAR FILTRATION RATE > 60.0 (>45); GLUCOSE, FASTING 95 MG/DL (80-110); POTASSIUM SERUM 3.7 MEQ/L (3.5-5.1); SODIUM LEVEL 143 MEQ/L (136-145); TOTAL PROTEIN 7.5 GM/DL (6.4-8.2)
[2017-06-14 14:59] LABS: COMPLEMENT C4 28.9 MG/DL (10-40)
[2017-06-22 00:07] LABS: C1 ESTER INHIB. NON FUNCTIONAL 33 mg/dL (21-39); IGE RECEPTOR ABY 1 6.7 (<10)
== END ==
LOC: M WUC 11:56
PROVIDERS: ATTEND Allergy & Immunology Allergy
DX: T78.3XXA Angioneurotic edema, initial encounter (principal); Y92.89 Other specified places as the place of occurrence of the external cause; Y93.89 Activity, other specified

== ENCOUNTER 2017-11-15 10:12 | Emergency (ER) | payer MEDICARE, MEDICAID ==
[2017-11-15] MEDS: diphenhydrAMINE INJ 50MG/ML VIAL (J1200) IV (11:02)
[2017-11-15] MEDS: methylPREDNISolone INJ 125 MG/2 ML VIAL (J2930) IV (11:02)
[2017-11-15] MEDS: FAMOTIDINE INJ 20MG/2ML VIAL (S0028) IVP (11:02)
== END 2017-11-15 12:22 | disposition home or self-care (01) ==
LOC: M ED 10:12
DX: T78.3XXA Angioneurotic edema, initial encounter (principal); Y92.9 Unspecified place or not applicable; Y93.9 Activity, unspecified; E11.9 Type 2 diabetes mellitus without complications; I10 Essential (primary) hypertension; Z86.73 Personal history of transient ischemic attack (TIA), and cerebral infarction without residual deficits; F17.200 Nicotine dependence, unspecified, uncomplicated; Z79.82 Long term (current) use of aspirin; Z79.84 Long term (current) use of oral hypoglycemic drugs; Z79.899 Other long term (current) drug therapy; Z88.8 Allergy status to other drugs, medicaments and biological substances; Z91.013 Allergy to seafood
CPT/HCPCS: J1200

== ENCOUNTER 2017-12-27 21:23 | Emergency (ER) | payer MEDICARE, MEDICAID ==
[2017-12-27] MEDS: NS 1,000 ML IV (21:45)
[2017-12-27] MEDS: methylPREDNISolone INJ 125 MG/2 ML VIAL (J2930) IV (21:45)
[2017-12-27] MEDS: diphenhydrAMINE INJ 50MG/ML VIAL (J1200) IV (21:45)
[2017-12-27] MEDS: FAMOTIDINE IV BAG 20 MG in APPROPRIATE DILUENT 1 EA IV (21:45)
== END 2017-12-28 03:52 | disposition left against medical advice (07) ==
LOC: M ED 12-28 03:52
DX: T78.3XXA Angioneurotic edema, initial encounter (principal); R22.1 Localized swelling, mass and lump, neck; X58.XXXA Exposure to other specified factors, initial encounter; Y92.89 Other specified places as the place of occurrence of the external cause; I10 Essential (primary) hypertension; E11.9 Type 2 diabetes mellitus without complications; E07.9 Disorder of thyroid, unspecified; F17.200 Nicotine dependence, unspecified, uncomplicated; Z91.013 Allergy to seafood; Z88.8 Allergy status to other drugs, medicaments and biological substances; Z79.899 Other long term (current) drug therapy; Z79.84 Long term (current) use of oral hypoglycemic drugs; Z79.82 Long term (current) use of aspirin
CPT/HCPCS: J1200

== ENCOUNTER 2018-03-11 15:13 | Emergency (ER) | payer MEDICARE, MEDICAID ==
[2018-03-11] MEDS: methylPREDNISolone INJ 125 MG/2 ML VIAL (J2930) IV (16:47)
[2018-03-11] MEDS: FAMOTIDINE IV BAG 20 MG in APPROPRIATE DILUENT 1 EA IV (16:49)
== END 2018-03-11 18:05 | disposition home or self-care (01) ==
LOC: M ED 15:13
DX: T78.3XXA Angioneurotic edema, initial encounter (principal); E11.9 Type 2 diabetes mellitus without complications; I10 Essential (primary) hypertension; F17.200 Nicotine dependence, unspecified, uncomplicated; E07.9 Disorder of thyroid, unspecified; Z91.013 Allergy to seafood; Z88.8 Allergy status to other drugs, medicaments and biological substances; Z79.84 Long term (current) use of oral hypoglycemic drugs; Z79.890 Hormone replacement therapy; Z79.82 Long term (current) use of aspirin; Z79.899 Other long term (current) drug therapy
CPT/HCPCS: J2930

== ENCOUNTER 2018-03-29 20:06 | Emergency (ER) | payer MEDICARE, MEDICAID ==
[2018-03-29] MEDS: diphenhydrAMINE INJ 50MG/ML VIAL (J1200) IV (21:11)
[2018-03-29] MEDS: methylPREDNISolone INJ 125 MG/2 ML VIAL (J2930) IV (21:11)
[2018-03-29] MEDS: FAMOTIDINE IV BAG 20 MG in APPROPRIATE DILUENT 1 EA IV (21:30)
== END 2018-03-29 22:18 | disposition home or self-care (01) ==
LOC: M ED 20:06
DX: T78.3XXA Angioneurotic edema, initial encounter (principal); R22.0 Localized swelling, mass and lump, head; X58.XXXA Exposure to other specified factors, initial encounter; Y92.89 Other specified places as the place of occurrence of the external cause; I10 Essential (primary) hypertension; E03.9 Hypothyroidism, unspecified; F17.200 Nicotine dependence, unspecified, uncomplicated; Z79.899 Other long term (current) drug therapy; Z79.84 Long term (current) use of oral hypoglycemic drugs; Z79.82 Long term (current) use of aspirin
CPT/HCPCS: J1200

== ENCOUNTER 2018-04-04 00:08 | Emergency (ER) | payer MEDICARE, MEDICAID ==
[2018-04-04] MEDS: dexameTHASONE 20 MG/5 ML VIAL (J1100) IM (01:33)
== END 2018-04-04 02:13 | disposition home or self-care (01) ==
LOC: M ED 00:08
DX: T78.3XXA Angioneurotic edema, initial encounter (principal); Y92.9 Unspecified place or not applicable; Y93.9 Activity, unspecified; Z79.899 Other long term (current) drug therapy; Z91.018 Allergy to other foods; Z88.8 Allergy status to other drugs, medicaments and biological substances
CPT/HCPCS: J1100

== ENCOUNTER 2018-04-11 02:48 | Emergency (ER) | payer MEDICARE, MEDICAID | END 2018-04-11 05:32 | disposition home or self-care (01) | LOC: M ED 02:48 | DX: R13.10 Dysphagia, unspecified (principal); E11.9 Type 2 diabetes mellitus without complications; I10 Essential (primary) hypertension; K21.9 Gastro-esophageal reflux disease without esophagitis; Z79.899 Other long term (current) drug therapy; Z79.890 Hormone replacement therapy; Z79.84 Long term (current) use of oral hypoglycemic drugs; Z88.8 Allergy status to other drugs, medicaments and biological substances; Z91.013 Allergy to seafood; F17.210 Nicotine dependence, cigarettes, uncomplicated | CPT/HCPCS: 70360 ==

== ENCOUNTER 2018-04-15 16:54 | Emergency (ER) | payer MEDICARE, MEDICAID ==
[2018-04-15] MEDS: methylPREDNISolone INJ 125 MG/2 ML VIAL (J2930) IV (17:21)
[2018-04-15] MEDS: FAMOTIDINE IV BAG 20 MG in APPROPRIATE DILUENT 1 EA IV (17:23)
[2018-04-15 17:24] LABS: BASO # 0.1 10^3/uL (0.0-0.2); BASO % 0.5 % (0.0-1.0); EOS # 0.3 10^3/uL (0.0-0.50); EOS % 2.5 % (0.0-3.0); HEMATOCRIT 43.8 % (36.0-47.0); HEMOGLOBIN 15.4 g/dl (12.0-15.5); IMMATURE GRANULOCYTE % 0.5 % (0-3.0); MEAN CORPUSCULAR HEMOGLOBIN 33.7 pg (27.0-33.0); MEAN CORPUSCULAR HGB CONC 35.2 g/dl (32.0-36.5); MEAN CORPUSCULAR VOLUME 95.8 fl (80.0-96.0); MONO # 1.1 10^3/uL (0.0-0.8); MONO % 9.1 % (0.0-5.0); NEUTROPHILS # 8.4 10^3/uL (1.8-7.7); NEUTROPHILS % 70.4 % (36.0-66.0); PLATELET COUNT, AUTOMATED 173 10^3/uL (150-450); RED BLOOD COUNT 4.57 10^6/uL (4.00-5.40); RED CELL DISTRIBUTION WIDTH 12.7 % (11.5-14.5); WHITE BLOOD COUNT 11.9 10^3/uL (4.0-10.0)
[2018-04-15 17:43] LABS: ALBUMIN 3.5 GM/DL (3.2-5.2); ALBUMIN/GLOBULIN RATIO 1.09 (1.00-1.93); ALKALINE PHOSPHATASE 60 U/L (45-117); ALT/SGPT 24 U/L (12-78); ANION GAP 9 MEQ/L (8-16); AST/SGOT 15 U/L (7-37); BILIRUBIN,DIRECT < 0.1 MG/DL (0.0-0.2); BILIRUBIN,TOTAL 0.4 MG/DL (0.2-1.0); BLOOD UREA NITROGEN 11 MG/DL (7-18); C REACTIVE PROTEIN QUANTITATIV 1.04 MG/DL (0.00-0.30); CALCIUM LEVEL 8.8 MG/DL (8.8-10.2); CARBON DIOXIDE LEVEL 28 MEQ/L (21-32); CHLORIDE LEVEL 104 MEQ/L (98-107); CREATININE FOR GFR 0.72 MG/DL (0.55-1.30); GLOMERULAR FILTRATION RATE > 60.0 (>45); GLUCOSE, FASTING 186 MG/DL (70-100); POTASSIUM SERUM 3.1 MEQ/L (3.5-5.1); SODIUM LEVEL 141 MEQ/L (136-145); TOTAL PROTEIN 6.7 GM/DL (6.4-8.2)
== END 2018-04-15 18:40 | disposition home or self-care (01) ==
LOC: M ED 16:54
DX: K14.9 Disease of tongue, unspecified (principal); E11.9 Type 2 diabetes mellitus without complications; I10 Essential (primary) hypertension; E03.9 Hypothyroidism, unspecified; Z86.73 Personal history of transient ischemic attack (TIA), and cerebral infarction without residual deficits; F17.200 Nicotine dependence, unspecified, uncomplicated; Z79.899 Other long term (current) drug therapy; Z79.84 Long term (current) use of oral hypoglycemic drugs; Z91.013 Allergy to seafood
CPT/HCPCS: J2930

== ENCOUNTER 2018-04-17 22:01 | Emergency (ER) | payer MEDICARE, MEDICAID ==
[2018-04-18] MEDS: methylPREDNISolone INJ 125 MG/2 ML VIAL (J2930) IM (00:45)
== END 2018-04-18 01:13 | disposition home or self-care (01) ==
LOC: M ED 22:01
DX: R13.10 Dysphagia, unspecified (principal); Z79.899 Other long term (current) drug therapy; Z88.8 Allergy status to other drugs, medicaments and biological substances; Z91.018 Allergy to other foods
CPT/HCPCS: J2930

== ENCOUNTER → 2018-05-25 | Outpatient (CLI) | payer MEDICARE, MEDICAID ==
[~2018-05-25] MED LIST changes: -ASPI1TAB PO; -AUGM875T28 PO; -CLEO150C PO; -CLEO300C2 PO; -DIPH50CA PO; +E-Z-GAS II EFFERVESCENT PACKET (SODIUM BICARB./CITRIC ACID/SIMETHICONE) As Ordered; +E-Z-HD 98% w/w 340GM SUSP BTL As Ordered; +E-Z-PAQUE 96% w/w SUSP 176GM BTL As Ordered; -FAMO20TA PO; -HYDR25TAB PO; -LOSA50TA20 PO; -METF500T13 PO; -PRED20TA PO; -SIMV80TA PO; -SYNT88TA2 PO; -ZOCO80TA PO
== END ==
LOC: M RAD 10:00
DX: R13.10 Dysphagia, unspecified (principal)
CPT/HCPCS: 74220

== ENCOUNTER 2021-10-12 09:35 | Emergency (ER) | payer MEDICARE, MEDICAID ==
[~2021-10-12] VITALS: Ht 165.1 cm; Wt 77.3 kg
[~2021-10-12 09:35] MED LIST changes: +ASPI81TA26 PO; +AUGM875T28 PO; +BENA25CA4 PO; +CETI10CH PO; +CLEO150C PO; +CLEO300C2 PO; +DIPH-319; +DIPH25CA32 PO; +DIPH50CA PO; -E-Z-GAS II EFFERVESCENT PACKET (SODIUM BICARB./CITRIC ACID/SIMETHICONE) As Ordered; -E-Z-HD 98% w/w 340GM SUSP BTL As Ordered; -E-Z-PAQUE 96% w/w SUSP 176GM BTL As Ordered; +FAMO20TA PO; +HYDR-3490 PO; +HYDR12.55 PO; +LOSA50TA88 PO; +METF500T13 PO; +PEPC1TAB5 PO; +PRED20TA PO; +SIMV80TA13 PO; +SYNT88TA2 PO; +ZOCO80TA PO
[2021-10-12] MEDS ORDERED: GABA-282 (09:47)
[2021-10-12] MEDS ORDERED: DULO1CAP4 (09:47)
[2021-10-12] MEDS ORDERED: ACETAMINOPHEN TAB 650MG DOSE (2X325MG) PO ONE (10:15)
--- NOTE | 2021-10-12 11:04 | REP ---
INDICATION: pain s/p fall/direct blow COMPARISON: None. TECHNIQUE: AP and lateral views of the sacrum and coccyx FINDINGS: Lateral view demonstrates contour abnormality at the level of the coccyx which may represent acute versus chronic injury. Remainder of the examination is grossly normal/age-appropriate. IMPRESSION: Acute versus chronic injury at the level of the coccyx. <Electronically signed by Pérez Lynn > 10/12/21 1108
[2021-10-12] MEDS ORDERED: IBUP-1022 PO (11:18)
[2021-10-12] MEDS ORDERED: ACET325C5 PO (11:18)
[2021-10-12] MEDS ORDERED: CANEMIS XX (11:35)
[2021-10-12 11:41] VITALS: BP 172/90
== END 2021-10-12 11:43 | disposition home or self-care (01) ==
LOC: M ED 09:35 → EDBD 09:35 → M ED 11:43
DX: S32.2XXA Fracture of coccyx, initial encounter for closed fracture (principal); W01.0XXA Fall on same level from slipping, tripping and stumbling without subsequent striking against object, initial encounter; Y92.009 Unspecified place in unspecified non-institutional (private) residence as the place of occurrence of the external cause; Y93.9 Activity, unspecified; Y99.9 Unspecified external cause status; E11.9 Type 2 diabetes mellitus without complications; I10 Essential (primary) hypertension; E03.9 Hypothyroidism, unspecified; F17.200 Nicotine dependence, unspecified, uncomplicated; Z88.8 Allergy status to other drugs, medicaments and biological substances; Z79.890 Hormone replacement therapy; Z79.899 Other long term (current) drug therapy

== ENCOUNTER 2022-01-28 09:35 | Inpatient (IN) | payer MEDICARE, MEDICAID ==
[~2022-01-28] VITALS: Ht 160 cm; Wt 89.1 kg
[~2022-01-28 09:35] MED LIST changes: +ACET325C5 PO; +CANEMIS XX; +DULO1CAP4 PO; +GABA-282 PO; +IBUP-1022 PO; +LOSA50TA28 PO; -LOSA50TA88 PO
[2022-01-28] MEDS ORDERED: ISOVUE-370 76% 100ML VIAL As Ordered ONE (10:06)
[2022-01-28 10:17] LABS: BASO # 0.1 10^3/uL (0.0-0.2); BASO % 0.5 % (0.0-1.0); EOS % 0.4 % (0.0-3.0); HEMATOCRIT 43.5 % (36.0-47.0); HEMOGLOBIN 14.9 g/dl (12.0-15.5); LYMPH # 0.5 10^3/uL (1.5-5.0); LYMPH % 4.2 % (24.0-44.0); MEAN CORPUSCULAR HEMOGLOBIN 33.3 pg (27.0-33.0); MEAN CORPUSCULAR HGB CONC 34.3 g/dl (32.0-36.5); MEAN CORPUSCULAR VOLUME 97.1 fl (80.0-96.0); MONO # 0.8 10^3/uL (0.0-0.8); MONO % 7.5 % (2.0-8.0); NEUTROPHILS # 9.4 10^3/uL (1.5-8.5); PLATELET COUNT, AUTOMATED 142 10^3/uL (150-450); RED BLOOD COUNT 4.48 10^6/uL (4.00-5.40)
[2022-01-28 10:45] LABS: INR 1.03; PROTHROMBIN TIME 13.9 SECONDS (12.7-14.5)
[2022-01-28 10:46] LABS: PARTIAL THROMBOPLASTIN TIME 33.5 SECONDS (25.9-37.0)
[2022-01-28 10:49] LABS: CALCIUM LEVEL 9.1 MG/DL (8.8-10.2); CREATININE FOR GFR 1.09 MG/DL (0.55-1.30); FREE T4 1.01 NG/DL (0.76-1.46); GLOMERULAR FILTRATION RATE 52.5 (>39); POTASSIUM SERUM 4.7 MEQ/L (3.5-5.1); THYROID STIMULATING HORMONE 0.677 uIU/ML (0.358-3.740)
[2022-01-28 11:04] LABS: MB/CK RELATIVE INDEX 0.5 (< OR =4)
[2022-01-28 11:26] LABS: RSV AMPLIFICATION NEGATIVE (NEGATIVE)
[2022-01-28 12:21] LABS: CK-MB VALUE MASS 33.1 NG/ML (<3.6); MB/CK RELATIVE INDEX 0.52 (< OR =4)
[2022-01-28] MEDS ORDERED: HYDR-3490 PO (14:10)
[2022-01-28] MEDS ORDERED: HOME MED LIST COMPLETE! XX SCH (14:10)
[2022-01-28] MEDS ORDERED: ERGO500029 PO (14:10)
[2022-01-28] MEDS ORDERED: LEVO100T5 PO (14:10)
[2022-01-28 16:20] VITALS: BP 140/71
[2022-01-28] MEDS ORDERED: DEXTROSE 50% 50 ML SYRINGE IV PRN (16:30)
[2022-01-28] MEDS ORDERED: GLUCAGON INJ 1MG VIAL SC PRN (16:30)
[2022-01-28] MEDS ORDERED: GLUCOSE 4GM CHEW TABLET PO PRN (16:30)
[2022-01-28] MEDS: dexameTHASONE 4 MG/ML 1ML VIAL (J1100 PER 1MG) IV SCH (17:42)
[2022-01-28] MEDS: HumaLOG INSULIN (NovoLOG) PER UNIT SC SCH ×2 (17:42→19:57)
[2022-01-28] MEDS ORDERED: REMDESIVIR 200 MG in NS 250 ML IV ONE (18:00)
[2022-01-28] MEDS ORDERED: ASPIRIN 81 MG CHEW TABLET PO ONE (18:00)
[2022-01-28] MEDS ORDERED: SODIUM CHLORIDE 0.9% INJ 10 ML SYR IV ONE (18:00)
[2022-01-28 18:11] LABS: INR 0.95; PROTHROMBIN TIME 13.1 SECONDS (12.7-14.5)
[2022-01-28 18:28] LABS: D-DIMER QUANT 3428.7 ng/ml (<500)
[2022-01-28 18:29] LABS: C REACTIVE PROTEIN QUANTITATIV 3.47 MG/DL (0.00-0.30)
[2022-01-28 19:01] LABS: CK-MB VALUE MASS 35.5 NG/ML (<3.6); MB/CK RELATIVE INDEX 0.39 (< OR =4)
[2022-01-28 19:35] VITALS: BP 134/73
[2022-01-28] MEDS: IPRATROPIUM 0.5MG/ALBUTEROL 2.5MG INH SOL UD 3ML (DUONEB) NEB SCH (19:48)
[2022-01-28 20:00] VITALS: O2SAT 95
[2022-01-28] MEDS: GABAPENTIN 300 MG CAP PO SCH (21:00)
[2022-01-28] MEDS: ENOXAPARIN 80MG/0.8ML SYRINGE (J1650 PER 10MG) SC SCH (21:00)
[2022-01-28] MEDS: ATORVASTATIN 20 MG TAB PO SCH (21:00)
[2022-01-28] MEDS: PANTOPRAZOLE 40MG TAB (PROTONIX) PO SCH (21:00)
[2022-01-28 21:10] LABS: ALBUMIN 3.2 GM/DL (3.2-5.2); BILIRUBIN,DIRECT 0.1 MG/DL (0.0-0.2); BILIRUBIN,TOTAL 0.4 MG/DL (0.2-1.0); TOTAL PROTEIN 6.3 GM/DL (6.4-8.2)
[2022-01-28 23:37] VITALS: BP 127/71
[2022-01-29] VITALS (14 sets, daily range): BP systolic 107–154; BP diastolic 58–80; O2SAT 91–96
[2022-01-29] MEDS: IPRATROPIUM 0.5MG/ALBUTEROL 2.5MG INH SOL UD 3ML (DUONEB) NEB SCH ×7 (04:00→23:18)
[2022-01-29] MEDS: LEVOTHYROXINE 100MCG TABLET (0.1MG) PO SCH (05:24)
[2022-01-29 05:34] LABS: BASO % 0.3 % (0.0-1.0); HEMATOCRIT 43.6 % (36.0-47.0); HEMOGLOBIN 14.9 g/dl (12.0-15.5); LYMPH # 0.7 10^3/uL (1.5-5.0); MEAN CORPUSCULAR HEMOGLOBIN 33.7 pg (27.0-33.0); MEAN CORPUSCULAR HGB CONC 34.2 g/dl (32.0-36.5); MEAN CORPUSCULAR VOLUME 98.6 fl (80.0-96.0); MONO # 0.4 10^3/uL (0.0-0.8); MONO % 6.6 % (2.0-8.0); NEUTROPHILS # 5.2 10^3/uL (1.5-8.5); NEUTROPHILS % 81.3 % (36.0-66.0); PLATELET COUNT, AUTOMATED 135 10^3/uL (150-450); RED BLOOD COUNT 4.42 10^6/uL (4.00-5.40); WHITE BLOOD COUNT 6.4 10^3/uL (4.0-10.0)
[2022-01-29 06:03] LABS: ALBUMIN 3.2 GM/DL (3.2-5.2); BILIRUBIN,DIRECT 0.1 MG/DL (0.0-0.2); BILIRUBIN,TOTAL 0.3 MG/DL (0.2-1.0); CALCIUM LEVEL 9.2 MG/DL (8.8-10.2); CREATININE FOR GFR 1.11 MG/DL (0.55-1.30); GLOMERULAR FILTRATION RATE 51.4 (>39); MAGNESIUM LEVEL 2.1 MG/DL (1.8-2.4); POTASSIUM SERUM 4.5 MEQ/L (3.5-5.1); TOTAL PROTEIN 6.2 GM/DL (6.4-8.2)
[2022-01-29] MEDS: GABAPENTIN 300 MG CAP PO SCH ×2 (07:49→22:55)
[2022-01-29] MEDS: ENOXAPARIN 80MG/0.8ML SYRINGE (J1650 PER 10MG) SC SCH ×2 (07:49→22:56)
[2022-01-29] MEDS: HumaLOG INSULIN (NovoLOG) PER UNIT SC SCH ×4 (07:49→22:56)
[2022-01-29] MEDS: PANTOPRAZOLE 40MG TAB (PROTONIX) PO SCH ×2 (07:50→22:55)
[2022-01-29] MEDS: DULoxetine 20 MG CAP (CYMBALTA) PO SCH (07:50)
[2022-01-29 09:07] LABS: MB/CK RELATIVE INDEX 0.37 (< OR =4)
[2022-01-29] MEDS: dexameTHASONE 4 MG/ML 1ML VIAL (J1100 PER 1MG) IV SCH (10:23)
[2022-01-29] MEDS ORDERED: LORazepam 2 MG/ML VIAL IV STA (11:39)
[2022-01-29] MEDS: REMDESIVIR 100 MG in NS 250 ML IV SCH (17:45)
[2022-01-29] MEDS: SODIUM CHLORIDE 0.9% INJ 10 ML SYR IV SCH (18:46)
[2022-01-29] MEDS: BUDESONIDE 0.5 MG/2 ML INHALATION SUSPENSION INH SCH (19:19)
[2022-01-29] MEDS: CARVedilol 3.125 MG TAB PO SCH (22:55)
[2022-01-29] MEDS: ATORVASTATIN 20 MG TAB PO SCH (22:55)
[2022-01-30] VITALS (24 sets, daily range): BP systolic 117–133; BP diastolic 63–69; O2SAT 88–98
[2022-01-30] MEDS: IPRATROPIUM 0.5MG/ALBUTEROL 2.5MG INH SOL UD 3ML (DUONEB) NEB SCH ×6 (03:00→23:56)
[2022-01-30] MEDS: LEVOTHYROXINE 100MCG TABLET (0.1MG) PO SCH (06:31)
[2022-01-30] MEDS: HumaLOG INSULIN (NovoLOG) PER UNIT SC SCH ×4 (07:30→21:00)
[2022-01-30] MEDS: DULoxetine 20 MG CAP (CYMBALTA) PO SCH (07:52)
[2022-01-30] MEDS: GABAPENTIN 300 MG CAP PO SCH ×2 (07:52→20:05)
[2022-01-30] MEDS: CARVedilol 3.125 MG TAB PO SCH ×2 (07:52→20:05)
[2022-01-30] MEDS: ENOXAPARIN 80MG/0.8ML SYRINGE (J1650 PER 10MG) SC SCH ×2 (07:52→20:06)
[2022-01-30] MEDS: PANTOPRAZOLE 40MG TAB (PROTONIX) PO SCH ×2 (07:52→20:05)
[2022-01-30] MEDS: dexameTHASONE 4 MG/ML 1ML VIAL (J1100 PER 1MG) IV SCH (07:52)
[2022-01-30] MEDS: BUDESONIDE 0.5 MG/2 ML INHALATION SUSPENSION INH SCH ×2 (07:59→20:00)
[2022-01-30 08:24] LABS: BASO % 0.1 % (0.0-1.0); EOS % 0.1 % (0.0-3.0); HEMATOCRIT 43.7 % (36.0-47.0); HEMOGLOBIN 14.6 g/dl (12.0-15.5); LYMPH # 2.1 10^3/uL (1.5-5.0); LYMPH % 24.5 % (24.0-44.0); MEAN CORPUSCULAR HEMOGLOBIN 33.9 pg (27.0-33.0); MEAN CORPUSCULAR HGB CONC 33.4 g/dl (32.0-36.5); MEAN CORPUSCULAR VOLUME 101.4 fl (80.0-96.0); MONO # 0.7 10^3/uL (0.0-0.8); MONO % 7.7 % (2.0-8.0); NEUTROPHILS # 5.8 10^3/uL (1.5-8.5); NEUTROPHILS % 66.9 % (36.0-66.0); PLATELET COUNT, AUTOMATED 154 10^3/uL (150-450); RED BLOOD COUNT 4.31 10^6/uL (4.00-5.40); WHITE BLOOD COUNT 8.7 10^3/uL (4.0-10.0)
[2022-01-30 08:44] LABS: INR 1.02; PROTHROMBIN TIME 13.8 SECONDS (12.7-14.5)
[2022-01-30 08:45] LABS: PARTIAL THROMBOPLASTIN TIME 60.4 SECONDS (25.9-37.0)
[2022-01-30 09:00] LABS: ALBUMIN 3.4 GM/DL (3.2-5.2); BILIRUBIN,DIRECT 0.1 MG/DL (0.0-0.2); BILIRUBIN,TOTAL 0.2 MG/DL (0.2-1.0); CALCIUM LEVEL 9.5 MG/DL (8.8-10.2); CREATININE FOR GFR 1.18 MG/DL (0.55-1.30); GLOMERULAR FILTRATION RATE 47.9 (>39); MAGNESIUM LEVEL 1.9 MG/DL (1.8-2.4); POTASSIUM SERUM 3.8 MEQ/L (3.5-5.1); TOTAL PROTEIN 6.2 GM/DL (6.4-8.2)
[2022-01-30] MEDS: REMDESIVIR 100 MG in NS 250 ML IV SCH (18:01)
[2022-01-30] MEDS: ASPIRIN 81 MG CHEW TABLET PO SCH (18:01)
[2022-01-30] MEDS: SODIUM CHLORIDE 0.9% INJ 10 ML SYR IV SCH (19:00)
[2022-01-30] MEDS: ATORVASTATIN 20 MG TAB PO SCH (20:04)
[2022-01-31] VITALS (16 sets, daily range): BP systolic 105–134; BP diastolic 58–60; O2SAT 92–98
[2022-01-31] MEDS: IPRATROPIUM 0.5MG/ALBUTEROL 2.5MG INH SOL UD 3ML (DUONEB) NEB SCH ×5 (05:04→19:50)
[2022-01-31] MEDS: LEVOTHYROXINE 100MCG TABLET (0.1MG) PO SCH (06:33)
[2022-01-31] MEDS: HumaLOG INSULIN (NovoLOG) PER UNIT SC SCH ×4 (07:30→21:00)
[2022-01-31 07:32] LABS: BASO % 0.2 % (0.0-1.0); EOS % 0.3 % (0.0-3.0); HEMOGLOBIN 14.1 g/dl (12.0-15.5); LYMPH # 2.7 10^3/uL (1.5-5.0); LYMPH % 30.4 % (24.0-44.0); MEAN CORPUSCULAR HEMOGLOBIN 33.2 pg (27.0-33.0); MEAN CORPUSCULAR HGB CONC 32.8 g/dl (32.0-36.5); MEAN CORPUSCULAR VOLUME 101.2 fl (80.0-96.0); MONO # 0.7 10^3/uL (0.0-0.8); MONO % 7.4 % (2.0-8.0); NEUTROPHILS # 5.4 10^3/uL (1.5-8.5); NEUTROPHILS % 61.2 % (36.0-66.0); PLATELET COUNT, AUTOMATED 161 10^3/uL (150-450); RED BLOOD COUNT 4.25 10^6/uL (4.00-5.40); WHITE BLOOD COUNT 8.8 10^3/uL (4.0-10.0)
[2022-01-31] MEDS: BUDESONIDE 0.5 MG/2 ML INHALATION SUSPENSION INH SCH ×2 (08:01→19:50)
[2022-01-31 08:02] LABS: CALCIUM LEVEL 9.3 MG/DL (8.8-10.2); CREATININE FOR GFR 1.07 MG/DL (0.55-1.30); GLOMERULAR FILTRATION RATE 53.7 (>39); MAGNESIUM LEVEL 1.7 MG/DL (1.8-2.4); POTASSIUM SERUM 4.1 MEQ/L (3.5-5.1)
[2022-01-31] MEDS: DULoxetine 20 MG CAP (CYMBALTA) PO SCH (09:02)
[2022-01-31] MEDS: CARVedilol 3.125 MG TAB PO SCH ×2 (09:02→22:02)
[2022-01-31] MEDS: PANTOPRAZOLE 40MG TAB (PROTONIX) PO SCH ×2 (09:03→21:59)
[2022-01-31] MEDS: GABAPENTIN 300 MG CAP PO SCH ×2 (09:03→22:00)
[2022-01-31] MEDS: ENOXAPARIN 80MG/0.8ML SYRINGE (J1650 PER 10MG) SC SCH ×2 (09:03→21:59)
[2022-01-31] MEDS: dexameTHASONE 4 MG/ML 1ML VIAL (J1100 PER 1MG) IV SCH (09:06)
[2022-01-31] MEDS ORDERED: MAG SULF 1GM/100ML (MAG RUN) 1 GM in IV 1 EA IV ONE (13:00)
[2022-01-31] MEDS: REMDESIVIR 100 MG in NS 250 ML IV SCH (17:40)
[2022-01-31] MEDS: SODIUM CHLORIDE 0.9% INJ 10 ML SYR IV SCH (17:41)
[2022-01-31] MEDS: ATORVASTATIN 20 MG TAB PO SCH (21:59)
[2022-01-31] MEDS: MAGNESIUM OXIDE 400MG TAB (MAG-OX) PO SCH (21:59)
[2022-02-01] VITALS (9 sets, daily range): BP systolic 108–140; BP diastolic 54–93; O2SAT 94–96
[2022-02-01] MEDS: IPRATROPIUM 0.5MG/ALBUTEROL 2.5MG INH SOL UD 3ML (DUONEB) NEB SCH ×6 (00:37→19:38)
[2022-02-01 05:36] LABS: BASO % 0.1 % (0.0-1.0); EOS % 0.4 % (0.0-3.0); HEMATOCRIT 38.4 % (36.0-47.0); LYMPH # 2.8 10^3/uL (1.5-5.0); LYMPH % 30.2 % (24.0-44.0); MEAN CORPUSCULAR HEMOGLOBIN 33.2 pg (27.0-33.0); MEAN CORPUSCULAR HGB CONC 33.9 g/dl (32.0-36.5); MEAN CORPUSCULAR VOLUME 98.2 fl (80.0-96.0); MONO # 0.9 10^3/uL (0.0-0.8); MONO % 9.3 % (2.0-8.0); NEUTROPHILS # 5.4 10^3/uL (1.5-8.5); NEUTROPHILS % 59.5 % (36.0-66.0); PLATELET COUNT, AUTOMATED 144 10^3/uL (150-450); RED BLOOD COUNT 3.91 10^6/uL (4.00-5.40); WHITE BLOOD COUNT 9.2 10^3/uL (4.0-10.0)
[2022-02-01 05:49] LABS: INR 0.99; PROTHROMBIN TIME 13.5 SECONDS (12.7-14.5)
[2022-02-01 05:50] LABS: PARTIAL THROMBOPLASTIN TIME 60.4 SECONDS (25.9-37.0)
[2022-02-01] MEDS: LEVOTHYROXINE 100MCG TABLET (0.1MG) PO SCH (05:56)
[2022-02-01 06:14] LABS: ALBUMIN 2.7 GM/DL (3.2-5.2); ALT/SGPT 54 U/L (12-78); BILIRUBIN,DIRECT < 0.1 MG/DL (0.0-0.2); BILIRUBIN,TOTAL 0.3 MG/DL (0.2-1.0); BLOOD UREA NITROGEN 34 MG/DL (7-18); CALCIUM LEVEL 8.9 MG/DL (8.8-10.2); CARBON DIOXIDE LEVEL 27 MEQ/L (21-32); CHLORIDE LEVEL 111 MEQ/L (98-107); CREATININE FOR GFR 0.95 MG/DL (0.55-1.30); FERRITIN 967 NG/ML (8-252); GLOMERULAR FILTRATION RATE > 60.0 (>39); GLUCOSE, FASTING 92 MG/DL (70-100); MAGNESIUM LEVEL 1.8 MG/DL (1.8-2.4); NT-PRO BNP 247 PG/ML (<125); POTASSIUM SERUM 3.9 MEQ/L (3.5-5.1); SODIUM LEVEL 142 MEQ/L (136-145); TOTAL PROTEIN 5.8 GM/DL (6.4-8.2)
[2022-02-01 06:15] LABS: LDH LACTATE DEHYDROGENASE 269 U/L (84-246)
[2022-02-01] MEDS: HumaLOG INSULIN (NovoLOG) PER UNIT SC SCH ×5 (07:30→20:32)
[2022-02-01] MEDS: BUDESONIDE 0.5 MG/2 ML INHALATION SUSPENSION INH SCH ×2 (07:49→19:39)
[2022-02-01] MEDS: PANTOPRAZOLE 40MG TAB (PROTONIX) PO SCH ×2 (08:07→20:27)
[2022-02-01] MEDS: MAGNESIUM OXIDE 400MG TAB (MAG-OX) PO SCH ×2 (08:07→20:27)
[2022-02-01] MEDS: DULoxetine 20 MG CAP (CYMBALTA) PO SCH (08:07)
[2022-02-01] MEDS: CARVedilol 3.125 MG TAB PO SCH ×2 (08:07→20:27)
[2022-02-01] MEDS: GABAPENTIN 300 MG CAP PO SCH ×2 (08:07→20:27)
[2022-02-01] MEDS: ENOXAPARIN 80MG/0.8ML SYRINGE (J1650 PER 10MG) SC SCH (08:08)
[2022-02-01] MEDS: dexameTHASONE 4 MG/ML 1ML VIAL (J1100 PER 1MG) IV SCH (08:08)
[2022-02-01] MEDS ORDERED: LOSARTAN 25 MG TAB PO SCH (13:00)
[2022-02-01] MEDS ORDERED: REMDESIVIR 100 MG in NS 250 ML IV ONE (14:00)
[2022-02-01] MEDS: CLOPIDOGREL 75 MG TAB PO SCH (14:05)
[2022-02-01] MEDS: SODIUM CHLORIDE 0.9% INJ 10 ML SYR IV SCH (14:44)
[2022-02-01] MEDS: ASPIRIN 81 MG CHEW TABLET PO SCH (17:32)
[2022-02-01] MEDS: ENOXAPARIN 40MG/0.4ML SYRINGE (J1650 PER 10MG) SC SCH (20:27)
[2022-02-01] MEDS: ATORVASTATIN 20 MG TAB PO SCH (20:31)
[2022-02-02 03:57] VITALS: BP 114/59
[2022-02-02] MEDS: IPRATROPIUM 0.5MG/ALBUTEROL 2.5MG INH SOL UD 3ML (DUONEB) NEB SCH ×4 (04:00→12:06)
[2022-02-02] MEDS: LEVOTHYROXINE 100MCG TABLET (0.1MG) PO SCH (06:02)
[2022-02-02] MEDS: HumaLOG INSULIN (NovoLOG) PER UNIT SC SCH ×2 (07:24→12:12)
[2022-02-02] MEDS: BUDESONIDE 0.5 MG/2 ML INHALATION SUSPENSION INH SCH (07:45)
[2022-02-02 08:00] VITALS: BP 119/63
[2022-02-02] MEDS: MAGNESIUM OXIDE 400MG TAB (MAG-OX) PO SCH (08:08)
[2022-02-02 08:09] VITALS: BP 119/63
[2022-02-02] MEDS: CARVedilol 3.125 MG TAB PO SCH (08:09)
[2022-02-02] MEDS: DULoxetine 20 MG CAP (CYMBALTA) PO SCH (08:09)
[2022-02-02] MEDS: CLOPIDOGREL 75 MG TAB PO SCH (08:10)
[2022-02-02] MEDS: PANTOPRAZOLE 40MG TAB (PROTONIX) PO SCH (08:10)
[2022-02-02] MEDS: dexameTHASONE 4 MG/ML 1ML VIAL (J1100 PER 1MG) IV SCH (08:10)
[2022-02-02] MEDS: ENOXAPARIN 40MG/0.4ML SYRINGE (J1650 PER 10MG) SC SCH (08:10)
[2022-02-02] MEDS: GABAPENTIN 300 MG CAP PO SCH (08:12)
[2022-02-02 09:22] LABS: BASO % 0.2 % (0.0-1.0); EOS # 0.2 10^3/uL (0.0-0.5); EOS % 1.9 % (0.0-3.0); HEMATOCRIT 41.7 % (36.0-47.0); HEMOGLOBIN 13.9 g/dl (12.0-15.5); LYMPH # 2.6 10^3/uL (1.5-5.0); LYMPH % 23.7 % (24.0-44.0); MEAN CORPUSCULAR HEMOGLOBIN 32.9 pg (27.0-33.0); MEAN CORPUSCULAR HGB CONC 33.3 g/dl (32.0-36.5); MEAN CORPUSCULAR VOLUME 98.6 fl (80.0-96.0); MONO # 0.9 10^3/uL (0.0-0.8); MONO % 8.2 % (2.0-8.0); NEUTROPHILS # 7.1 10^3/uL (1.5-8.5); NEUTROPHILS % 65.3 % (36.0-66.0); PLATELET COUNT, AUTOMATED 158 10^3/uL (150-450); RED BLOOD COUNT 4.23 10^6/uL (4.00-5.40); WHITE BLOOD COUNT 10.8 10^3/uL (4.0-10.0)
[2022-02-02 09:50] LABS: BLOOD UREA NITROGEN 33 MG/DL (7-18); CALCIUM LEVEL 9.3 MG/DL (8.8-10.2); CARBON DIOXIDE LEVEL 30 MEQ/L (21-32); CHLORIDE LEVEL 106 MEQ/L (98-107); CREATININE FOR GFR 0.97 MG/DL (0.55-1.30); GLOMERULAR FILTRATION RATE > 60.0 (>39); GLUCOSE, FASTING 108 MG/DL (70-100); MAGNESIUM LEVEL 1.9 MG/DL (1.8-2.4); POTASSIUM SERUM 3.7 MEQ/L (3.5-5.1); SODIUM LEVEL 142 MEQ/L (136-145)
[2022-02-02] MEDS ORDERED: CARV3.12 PO (11:02)
[2022-02-02] MEDS ORDERED: CLOP75TA2 PO (11:02)
[2022-02-02] MEDS ORDERED: PRED10TA2 PO (11:02)
[2022-02-02] MEDS ORDERED: ASPI81CH8 PO (11:02)
[2022-02-02] MEDS ORDERED: ATOR1TAB21 PO (11:02)
[2022-02-02] MEDS ORDERED: FAMO20TA PO (11:02)
[2022-02-02] MEDS: SODIUM CHLORIDE 0.9% INJ 10 ML SYR IV SCH (14:00)
== END 2022-02-02 14:50 | disposition home health service (06) | DRG 177 ==
LOC: M ED 09:35 → EDBD 09:35 → M ED INP 13:17 → M 4MAIN 16:11
PROVIDERS: ADMIT Internal Medicine Nephrology; ATTEND Internal Medicine Nephrology
DX: U07.1 COVID-19 (principal); I21.4 Non-ST elevation (NSTEMI) myocardial infarction; J12.82 Pneumonia due to coronavirus disease 2019; I50.22 Chronic systolic (congestive) heart failure; E11.40 Type 2 diabetes mellitus with diabetic neuropathy, unspecified; I11.0 Hypertensive heart disease with heart failure; E03.9 Hypothyroidism, unspecified; F17.200 Nicotine dependence, unspecified, uncomplicated; I65.21 Occlusion and stenosis of right carotid artery; R91.1 Solitary pulmonary nodule; Z79.82 Long term (current) use of aspirin; Z79.899 Other long term (current) drug therapy; Z91.013 Allergy to seafood; Z88.8 Allergy status to other drugs, medicaments and biological substances; E78.5 Hyperlipidemia, unspecified; E83.42 Hypomagnesemia

== ENCOUNTER 2022-02-11 15:51 | Emergency (ER) | payer MEDICARE, MEDICAID ==
[~2022-02-11 15:51] MED LIST changes: +ASPI81CH8 PO; +ATOR1TAB21 PO; +CARV3.12 PO; +CLOP75TA2 PO; +ERGO500029 PO; +LEVO100T5 PO; +PRED10TA2 PO
[2022-02-11] MEDS ORDERED: MORPHINE 2 MG/ML 1ML VIAL IV ONE (16:20)
[2022-02-11 17:31] LABS: BASO # 0.1 10^3/uL (0.0-0.2); BASO % 0.4 % (0.0-1.0); EOS # 0.2 10^3/uL (0.0-0.5); HEMATOCRIT 36.7 % (36.0-47.0); HEMOGLOBIN 12.4 g/dl (12.0-15.5); LYMPH # 2.1 10^3/uL (1.5-5.0); LYMPH % 10.2 % (24.0-44.0); MEAN CORPUSCULAR HEMOGLOBIN 33.8 pg (27.0-33.0); MEAN CORPUSCULAR HGB CONC 33.8 g/dl (32.0-36.5); MONO # 0.8 10^3/uL (0.0-0.8); MONO % 3.8 % (2.0-8.0); NEUTROPHILS # 17.1 10^3/uL (1.5-8.5); NEUTROPHILS % 83.9 % (36.0-66.0); PLATELET COUNT, AUTOMATED 245 10^3/uL (150-450); RED BLOOD COUNT 3.67 10^6/uL (4.00-5.40); WHITE BLOOD COUNT 20.4 10^3/uL (4.0-10.0)
[2022-02-11] MEDS ORDERED: ISOVUE-370 76% 100ML VIAL As Ordered ONE (17:42)
[2022-02-11 17:44] LABS: INR 1.03; PROTHROMBIN TIME 13.9 SECONDS (12.7-14.5)
[2022-02-11 17:45] LABS: PARTIAL THROMBOPLASTIN TIME 24.6 SECONDS (25.9-37.0)
[2022-02-11 17:48] LABS: CK-MB VALUE MASS 4.8 NG/ML (<3.6); MB/CK RELATIVE INDEX 1.83 (< OR =4)
[2022-02-11 17:51] LABS: ALBUMIN 3.1 GM/DL (3.2-5.2); BILIRUBIN,DIRECT 0.2 MG/DL (0.0-0.2); BILIRUBIN,TOTAL 0.7 MG/DL (0.2-1.0); TOTAL PROTEIN 6.8 GM/DL (6.4-8.2)
[2022-02-11 19:00] VITALS: BP 172/90
[2022-02-11 19:27] LABS: CK-MB VALUE MASS 3.3 NG/ML (<3.6); MB/CK RELATIVE INDEX 1.24 (< OR =4)
== END 2022-02-11 20:15 | disposition left against medical advice (07) ==
LOC: M ED 15:51 → EDBD 15:51 → M ED 20:15
DX: R10.9 Unspecified abdominal pain (principal); M54.50 Low back pain, unspecified; E11.9 Type 2 diabetes mellitus without complications; Z79.4 Long term (current) use of insulin; Z53.21 Procedure and treatment not carried out due to patient leaving prior to being seen by health care provider; Z91.013 Allergy to seafood; Z88.8 Allergy status to other drugs, medicaments and biological substances
CPT/HCPCS: 74174; 80047; 80076; 82550; 82553; 83605; 83690; 84484; 85025; 85610; 85730; 93005; 93041; 96374; 99285; J2270; Q9967

== ENCOUNTER 2022-02-11 22:32 | Emergency (ER) | payer MEDICARE, MEDICAID ==
[~2022-02-11] VITALS: Ht 157.5 cm; Wt 79.0 kg
[2022-02-11 22:39] VITALS: BP 184/95
== END 2022-02-11 23:55 | disposition left against medical advice (07) ==
LOC: M ED 22:32
DX: Z53.21 Procedure and treatment not carried out due to patient leaving prior to being seen by health care provider (principal)

== ENCOUNTER 2022-02-12 04:41 | Emergency (ER) | payer MEDICARE, MEDICAID ==
[~2022-02-12] VITALS: Ht 162.6 cm; Wt 79.0 kg
[2022-02-12 08:25] LABS: BASO # 0.1 10^3/uL (0.0-0.2); BASO % 0.2 % (0.0-1.0); EOS % 0.1 % (0.0-3.0); HEMATOCRIT 33.6 % (36.0-47.0); HEMOGLOBIN 11.1 g/dl (12.0-15.5); LYMPH # 1.3 10^3/uL (1.5-5.0); LYMPH % 5.1 % (24.0-44.0); MEAN CORPUSCULAR HEMOGLOBIN 33.4 pg (27.0-33.0); MEAN CORPUSCULAR VOLUME 101.2 fl (80.0-96.0); MONO # 1.4 10^3/uL (0.0-0.8); MONO % 5.3 % (2.0-8.0); NEUTROPHILS # 22.7 10^3/uL (1.5-8.5); NEUTROPHILS % 86.8 % (36.0-66.0); PLATELET COUNT, AUTOMATED 256 10^3/uL (150-450); RED BLOOD COUNT 3.32 10^6/uL (4.00-5.40); WHITE BLOOD COUNT 26.1 10^3/uL (4.0-10.0)
[2022-02-12 08:41] LABS: INR 1.08; PROTHROMBIN TIME 14.4 SECONDS (12.7-14.5)
[2022-02-12 08:42] LABS: PARTIAL THROMBOPLASTIN TIME 29.4 SECONDS (25.9-37.0)
[2022-02-12 08:49] LABS: ALBUMIN 2.9 GM/DL (3.2-5.2); BILIRUBIN,DIRECT 0.2 MG/DL (0.0-0.2); BILIRUBIN,TOTAL 0.7 MG/DL (0.2-1.0); C REACTIVE PROTEIN QUANTITATIV 8.84 MG/DL (0.00-0.30); TOTAL PROTEIN 6.3 GM/DL (6.4-8.2)
[2022-02-12 08:53] LABS: CK-MB VALUE MASS 5.2 NG/ML (<3.6); MB/CK RELATIVE INDEX 2.24 (< OR =4)
[2022-02-12 08:56] LABS: RSV AMPLIFICATION NEGATIVE (NEGATIVE)
[2022-02-12] MEDS ORDERED: PIPERACILLIN/TAZOBACTAM SOD 4.5 GM in D5W MINI-BAG PLUS 50 ML IV ONE (09:05)
[2022-02-12] MEDS ORDERED: NS 2,370 ML in IV 1 EA IV ONE (09:05)
[2022-02-12 09:12] LABS: ERYTHROCYTE SEDIMENTATION RATE 70 mm/hr (0-30)
[2022-02-12 09:22] LABS: ABG HCO3 24.3 MEQ/L (22.0-26.0); ABG O2 SATURATION 96.2 % (95.0-99.0); ABG PARTIAL PRESSURE CO2 37.9 mmHg (35.0-45.0); ABG PARTIAL PRESSURE O2 85.2 mmHg (75.0-100.0); ABG STANDARD HCO3 24.5 MEQ/L (22.0-26.0); ABG TOTAL CO2 25.4 MEQ/L (23.0-31.0); ABG pH (ARTERIAL) 7.424 UNITS (7.350-7.450)
[2022-02-12] MEDS ORDERED: DESMOPRESSIN ACETATE 24 MCG in NS 50 ML IV ONE (09:45)
[2022-02-12] MEDS ORDERED: ONDANSETRON 4MG/2ML VIAL IV ONE (10:20)
[2022-02-12 10:42] LABS: CK-MB VALUE MASS 4.5 NG/ML (<3.6); MB/CK RELATIVE INDEX 2.47 (< OR =4)
[2022-02-12 10:45] VITALS: BP 147/89
== END 2022-02-12 11:02 | disposition short-term general hospital (02) ==
LOC: M ED 04:41
DX: I71.3 Abdominal aortic aneurysm, ruptured (principal); M54.50 Low back pain, unspecified; I10 Essential (primary) hypertension; E11.9 Type 2 diabetes mellitus without complications; E03.9 Hypothyroidism, unspecified; F41.9 Anxiety disorder, unspecified; I65.21 Occlusion and stenosis of right carotid artery; Z86.16 Personal history of COVID-19; F17.200 Nicotine dependence, unspecified, uncomplicated; Z91.013 Allergy to seafood; Z88.8 Allergy status to other drugs, medicaments and biological substances; Z79.4 Long term (current) use of insulin; Z79.899 Other long term (current) drug therapy
CPT/HCPCS: 36415; 36600; 71045; 73502; 74176; 80047; 80076; 81001; 82550; 82553; 82803; 83605; 83690; 84484; 85025; 85610; 85652; 85730; 86140; 86850; 86900; 86901; 86920; 87040; 87428; 87631; 93005; 93041; 94760; 96365; 96375; 99285; J2405; J2597; P9016

== ENCOUNTER 2022-07-01 09:56 | Inpatient (IN) | payer MEDICARE, MEDICAID ==
[2022-07-01 13:13] LABS: BASO % 0.2 % (0.0-1.0); EOS # 0.1 10^3/uL (0.0-0.5); EOS % 0.3 % (0.0-3.0); HEMATOCRIT 45.5 % (36.0-47.0); HEMOGLOBIN 14.9 g/dl (12.0-15.5); LYMPH # 1.1 10^3/uL (1.5-5.0); LYMPH % 6.5 % (24.0-44.0); MEAN CORPUSCULAR HEMOGLOBIN 31.2 pg (27.0-33.0); MEAN CORPUSCULAR HGB CONC 32.7 g/dl (32.0-36.5); MEAN CORPUSCULAR VOLUME 95.4 fl (80.0-96.0); MONO # 1.1 10^3/uL (0.0-0.8); MONO % 6.2 % (2.0-8.0); NEUTROPHILS # 14.5 10^3/uL (1.5-8.5); PLATELET COUNT, AUTOMATED 165 10^3/uL (150-450); RED BLOOD COUNT 4.77 10^6/uL (4.00-5.40); WHITE BLOOD COUNT 16.8 10^3/uL (4.0-10.0)
[2022-07-01 14:09] LABS: CK-MB VALUE MASS 1.9 NG/ML (<3.6); MB/CK RELATIVE INDEX 0.46 (< OR =4)
[2022-07-01] MEDS ORDERED: NS 1,000 ML IV ONE (14:15)
[2022-07-01 14:17] LABS: CALCIUM LEVEL 9.5 MG/DL (8.8-10.2); CREATININE FOR GFR 1.32 MG/DL (0.55-1.30); FREE T4 1.26 NG/DL (0.76-1.46); GLOMERULAR FILTRATION RATE 42.1 (>39); MAGNESIUM LEVEL 1.8 MG/DL (1.8-2.4); POTASSIUM SERUM 4.5 MEQ/L (3.5-5.1); THYROID STIMULATING HORMONE 0.315 uIU/ML (0.358-3.740)
[2022-07-01] MEDS ORDERED: cefTRIAXone SOD 1 GM in D5W MINI-BAG PLUS 50 ML IV ONE (17:05)
[2022-07-01] MEDS ORDERED: CEFD300C PO (17:17)
[2022-07-01] MEDS ORDERED: GLUCOSE 4GM CHEW TABLET PO PRN (18:35)
[2022-07-01] MEDS ORDERED: ACETAMINOPHEN TAB 650MG DOSE (2X325MG) PO PRN (18:35)
[2022-07-01] MEDS ORDERED: DEXTROSE 50% 50 ML SYRINGE IV PRN (18:35)
[2022-07-01] MEDS ORDERED: GLUCAGON INJ 1MG VIAL SC PRN (18:35)
[2022-07-01] MEDS: NS 1,000 ML IV SCH (18:57)
[2022-07-01] MEDS ORDERED: ASPI81CH33 PO (19:08)
[2022-07-01] MEDS ORDERED: HOME MED LIST COMPLETE! XX SCH (19:10)
[2022-07-01] MEDS: INSULIN LISPRO (NovoLOG) PER UNIT SC SCH (20:59)
[2022-07-01] MEDS: HEPARIN SOD (PORCINE) 5000UNITS/ML 1ML VIAL/SYRINGE SQ SCH (21:10)
[2022-07-02] MEDS: LEVOTHYROXINE 100MCG TABLET (0.1MG) PO SCH (06:22)
[2022-07-02 08:03] LABS: HEMATOCRIT 37.4 % (36.0-47.0); MEAN CORPUSCULAR HEMOGLOBIN 31.5 pg (27.0-33.0); MEAN CORPUSCULAR HGB CONC 32.9 g/dl (32.0-36.5); MEAN CORPUSCULAR VOLUME 95.7 fl (80.0-96.0); PLATELET COUNT, AUTOMATED 148 10^3/uL (150-450); RED BLOOD COUNT 3.91 10^6/uL (4.00-5.40); WHITE BLOOD COUNT 9.9 10^3/uL (4.0-10.0)
[2022-07-02 08:05] LABS: HEMOGLOBIN 12.3 g/dl (12.0-15.5)
[2022-07-02 08:22] LABS: CALCIUM LEVEL 9.1 MG/DL (8.8-10.2); CHOLESTEROL RISK RATIO 4.096 (<5); CREATININE FOR GFR 1.06 MG/DL (0.55-1.30); GLOMERULAR FILTRATION RATE 54.2 (>39)
[2022-07-02] MEDS: ASPIRIN 81 MG CHEW TABLET PO SCH (08:59)
[2022-07-02] MEDS: DULoxetine 20 MG CAP (CYMBALTA) PO SCH (08:59)
[2022-07-02] MEDS ORDERED: ENOXAPARIN 40MG/0.4ML SYRINGE (J1650 PER 10MG) SC SCH (09:00)
[2022-07-02] MEDS: HEPARIN SOD (PORCINE) 5000UNITS/ML 1ML VIAL/SYRINGE SQ SCH ×2 (09:00→17:40)
[2022-07-02] MEDS: INSULIN LISPRO (NovoLOG) PER UNIT SC SCH ×4 (09:01→20:49)
[2022-07-02] MEDS: NS 1,000 ML IV SCH (09:01)
[2022-07-02 11:07] VITALS: BP 138/68
[2022-07-02 14:00] VITALS: BP 140/78
[2022-07-02] MEDS ORDERED: cefTRIAXone SOD 1 GM in D5W MINI-BAG PLUS 50 ML IV SCH (17:00)
[2022-07-02 22:00] VITALS: BP 114/63
[2022-07-03] MEDS: HEPARIN SOD (PORCINE) 5000UNITS/ML 1ML VIAL/SYRINGE SQ SCH ×3 (01:26→16:34)
[2022-07-03 05:43] VITALS: BP 141/78
[2022-07-03] MEDS: LEVOTHYROXINE 100MCG TABLET (0.1MG) PO SCH (06:30)
[2022-07-03] MEDS ORDERED: MEROPENEM INJ 1 GM in IV 1 EA IV SCH (07:25)
[2022-07-03 07:27] LABS: HEMATOCRIT 36.9 % (36.0-47.0); HEMOGLOBIN 11.8 g/dl (12.0-15.5); MEAN CORPUSCULAR HEMOGLOBIN 30.7 pg (27.0-33.0); MEAN CORPUSCULAR VOLUME 96.1 fl (80.0-96.0); PLATELET COUNT, AUTOMATED 158 10^3/uL (150-450); RED BLOOD COUNT 3.84 10^6/uL (4.00-5.40); WHITE BLOOD COUNT 8.3 10^3/uL (4.0-10.0)
[2022-07-03 07:51] LABS: BLOOD UREA NITROGEN 20 MG/DL (7-18); CALCIUM LEVEL 8.9 MG/DL (8.8-10.2); CARBON DIOXIDE LEVEL 28 MEQ/L (21-32); CHLORIDE LEVEL 107 MEQ/L (98-107); GLOMERULAR FILTRATION RATE > 60.0 (>39); GLUCOSE, FASTING 118 MG/DL (70-100); MAGNESIUM LEVEL 1.9 MG/DL (1.8-2.4); PHOSPHORUS LEVEL 3.2 MG/DL (2.5-4.9); POTASSIUM SERUM 3.7 MEQ/L (3.5-5.1); SODIUM LEVEL 139 MEQ/L (136-145)
[2022-07-03] MEDS: ASPIRIN 81 MG CHEW TABLET PO SCH (08:08)
[2022-07-03] MEDS: DULoxetine 20 MG CAP (CYMBALTA) PO SCH (08:08)
[2022-07-03] MEDS: INSULIN LISPRO (NovoLOG) PER UNIT SC SCH ×4 (08:09→21:00)
[2022-07-03] MEDS ORDERED: FOSFOMYCIN TROMETHAMINE 3 GM POWDER PACKET (MONUROL) PO ONE (11:00)
[2022-07-03 14:03] VITALS: BP 137/72
[2022-07-04] VITALS: BP 142/94
[2022-07-04] MEDS: HEPARIN SOD (PORCINE) 5000UNITS/ML 1ML VIAL/SYRINGE SQ SCH ×3 (00:56→17:19)
[2022-07-04] MEDS: LEVOTHYROXINE 100MCG TABLET (0.1MG) PO SCH (05:00)
[2022-07-04 06:00] VITALS: BP 148/90
[2022-07-04] MEDS: INSULIN LISPRO (NovoLOG) PER UNIT SC SCH ×4 (07:58→21:00)
[2022-07-04] MEDS: ASPIRIN 81 MG CHEW TABLET PO SCH (07:59)
[2022-07-04] MEDS: DULoxetine 20 MG CAP (CYMBALTA) PO SCH (07:59)
[2022-07-04] MEDS ORDERED: HEPARIN SOD (PORCINE) 5000UNITS/ML 1ML VIAL/SYRINGE SQ ONE (23:00)
[2022-07-05 05:42] VITALS: BP 144/77
[2022-07-05] MEDS ORDERED: HEPARIN SOD (PORCINE) 5000UNITS/ML 1ML VIAL/SYRINGE SQ SCH (06:00)
[2022-07-05] MEDS: LEVOTHYROXINE 100MCG TABLET (0.1MG) PO SCH (06:05)
[2022-07-05] MEDS: INSULIN LISPRO (NovoLOG) PER UNIT SC SCH (07:54)
[2022-07-05] MEDS: DULoxetine 20 MG CAP (CYMBALTA) PO SCH ×2 (07:55→09:00)
[2022-07-05] MEDS: ASPIRIN 81 MG CHEW TABLET PO SCH (07:55)
[2022-07-05] MEDS ORDERED: MONU5.636 PO (10:44)
[2022-07-06] MEDS ORDERED: FOSFOMYCIN TROMETHAMINE 3 GM POWDER PACKET (MONUROL) PO ONE (11:00)
== END 2022-07-05 12:10 | disposition home or self-care (01) | DRG 690 ==
LOC: M ED 09:56 → M ED INP 18:33 → ENRESERV 07-02 08:14 → M MSPAV 07-02 11:17 → M MS5PR 07-03 23:55
PROVIDERS: ADMIT Internal Medicine; ATTEND Internal Medicine
DX: N39.0 Urinary tract infection, site not specified (principal); N17.9 Acute kidney failure, unspecified; E11.40 Type 2 diabetes mellitus with diabetic neuropathy, unspecified; E03.9 Hypothyroidism, unspecified; I10 Essential (primary) hypertension; E78.5 Hyperlipidemia, unspecified; F17.210 Nicotine dependence, cigarettes, uncomplicated; Z86.73 Personal history of transient ischemic attack (TIA), and cerebral infarction without residual deficits; Z88.8 Allergy status to other drugs, medicaments and biological substances; Z79.82 Long term (current) use of aspirin; Z79.899 Other long term (current) drug therapy; Z91.013 Allergy to seafood; I71.4 Abdominal aortic aneurysm, without rupture; I65.21 Occlusion and stenosis of right carotid artery